=== PATIENT | female | born 1955 | race Caucasian/White ===

== ENCOUNTER 2016-12-04 07:46 | Outpatient (CLI) | payer OTHER | END 2016-12-04 07:47 | disposition home or self-care (01) | DX: Z00.00 Encounter for general adult medical examination without abnormal findings (principal) ==

== ENCOUNTER 2016-12-28 14:22 | Outpatient (CLI) | payer OTHER | END 2016-12-28 14:23 | disposition home or self-care (01) | DX: Z12.31 Encounter for screening mammogram for malignant neoplasm of breast (principal) ==

== ENCOUNTER 2016-12-28 14:24 | Outpatient (CLI) | payer OTHER | END 2016-12-28 14:25 | disposition home or self-care (01) | DX: Z13.820 Encounter for screening for osteoporosis (principal); M85.88 Other specified disorders of bone density and structure, other site ==

== ENCOUNTER 2018-04-03 16:06 | Emergency (ER) | payer OTHER ==
--- NOTE | 2018-04-03 19:18 | ED Physician Documentation ---
PD HPI OPHTHO - Stated complaint Stated Complaint: L EYE BLURRY - Chief complaint Chief Complaint: Heent - History obtained from History obtained from: Patient - History of Present Illness Timing - onset: How many days ago (2-3 days of having more floaters in left eye and slightly blurry vision at times. Having some peripheral scotomata left eye laterally intermittent. No eye pain. No eye injury. No headache.) Timing - duration: Days (2-3) Timing - details: Gradual onset, Intermittant Location: Left Quality / character: No: Aching Associated symptoms: Decreased vision (slightly blurry/floaters appearance.). No: Discharge, Matting, Photophobia, Headache Contributing factors: No: FB, Blunt trauma, Wears contacts Similar symptoms before: Has not had sx before (had brief loss of vision years ago, Dx as partial retinal artery occlusion; no particular treatment and had cardiac eval that was okay.) Recently seen: Not recently seen Review of Systems Eyes: reports: Decreased vision, Other (peripheral flashes intermittently for 2- 3 days). 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 : None HEENT: Other Psych: None Musculoskeletal: None Derm: Herpes zoster - Past Surgical History Past Surgical History: No /STORE GROUP MANAGER: Hysterectomy - Present Medications Home Medications: Ambulatory Orders Medication Instructions Recorded Confirmed Losartan [Cozaar] 50 mg PO BID 09/13/15 09/13/15 Metoprolol Tartrate 50 mg PO BID 09/13/15 09/13/15 Simvastatin 40 mg PO DAILY 09/13/15 09/13/15 - Allergies Allergies/Adverse Reactions: Allergies Allergy/AdvReac Type Severity Reaction Status Date / Time Sulfa (Sulfonamide Allergy Rash Verified 09/13/15 17:07 Antibiotics) - Social History Does the pt smoke?: No Smoking Status: Never smoker Does the pt drink ETOH?: Yes - Immunizations Immunizations are current?: Yes PD ED PE NORMAL - Vitals Vital signs reviewed: Yes - General General: Alert and oriented X 3, No acute distress, Well developed/nourished - HEENT HEENT: Ears normal, Pharynx benign - Neck Neck: Supple, no meningeal sign, No adenopathy, No bruit PD ED PE EXPANDED - Eyes Eyes: PERRL, EOMI, Anterior chambers clear, Other (there is some small floaters left posterior chamber c/w likely small hemorrhage. I could not see the hemorrhage per se. There appeared to be vascularity to the periphery in eye. Visual jimenez still intact. ) Results - Vitals Vitals: Oxygen O2 Source Room air PD MEDICAL DECISION MAKING - ED course Complexity details: considered differential (likely threatened retinal detachment or small bleed. I can see vascularity to the edge right now (in dark room, no dialting drops used). She is okay with seeing clinical implementation specialist in AM; she sees Dr. Santiago, Optometry, and I suggested Ophthalmology instead. No vigorous activity. ), d/w patient Departure - Departure Disposition: 01 Home, Self Care Clinical Impression: Ring scotoma, left eye, Retinal dot hemorrhage of left eye Condition: Stable Record reviewed to determine appropriate education?: Yes Instructions: ED Detachment Retinal Follow-Up: Srinivas Santiago, [facility] [Physician No Access] - Manuel Esquivel MD [Provider Admit Priv/Credential] - Comments: No vigorous activity tonight. Call Dr. Santiago tomorrow or alternatively Dr. Armstrong ophthalmology here in [place] for an exam tomorrow. There is concern for partial or threatened detachment of the retina with the symptoms you are having. It does not look detached at this time. Follow-up tomorrow with them return sooner if you are unable to see them or have worse symptoms. Discharge Date/Time: 04/03/18 20:15
[2018-04-03 20:13] VITALS: BP 177/98
== END 2018-04-03 20:15 | disposition home or self-care (01) ==
LOC: ED 16:06
DX: H53.452 Other localized visual field defect, left eye (principal); H35.62 Retinal hemorrhage, left eye; I10 Essential (primary) hypertension; I49.9 Cardiac arrhythmia, unspecified
CPT/HCPCS: 99283

== ENCOUNTER 2018-05-22 09:22 | Outpatient (CLI) | payer OTHER ==
[2018-05-22 09:52] LABS: BASOPHILS % (AUTO) 0.3 %; EOSINOPHILS # (AUTO) 0.1 10^3/uL (0.0-0.7); EOSINOPHILS % (AUTO) 1.1 %; HGB - HEMOGLOBIN 12.8 g/dL (12.0-16.0); LYMPHOCYTES # (AUTO) 1.7 10^3/uL (1.5-3.5); LYMPHOCYTES % (AUTO) 36.9 %; MEAN CORPUSCULAR HEMOGLOBIN 32.5 pg (27.0-31.0); MEAN CORPUSCULAR HGB CONC 34.1 g/dL (32.0-36.0); MEAN CORPUSCULAR VOLUME 95.3 fL (81.0-99.0); MEAN PLATELET VOLUME 7.4 fL (7.9-10.8); MONOCYTES # (AUTO) 0.4 10^3/uL (0.0-1.0); MONOCYTES % (AUTO) 7.7 %; NEUTROPHILS # (AUTO) 2.5 10^3/uL (1.5-6.6); PLT - PLATELET COUNT 194 10^3/uL (130-450); RED BLOOD COUNT 3.95 10^6/uL (4.20-5.40); RED CELL DISTRIBUTION WIDTH 12.8 % (12.0-15.0); WHITE BLOOD COUNT 4.6 x10^3/uL (4.8-10.8)
[2018-05-22 10:15] LABS: ALBUMIN 3.7 g/dL (3.2-5.5); ALBUMIN/GLOBULIN RATIO 1.2 (1.0-2.2); ALKALINE PHOSPHATASE 58 IU/L (42-121); ALT ALANINE AMINOTRANSFERASE 26 IU/L (10-60); AST ASPARTATE AMINOTRANSFERASE 25 IU/L (10-42); BUN - BLOOD UREA NITROGEN 14 mg/dL (6-20); CARBON DIOXIDE - CO2 26 mmol/L (21-32); CHLORIDE 107 mmol/L (101-111); CHOL/HDL RATIO 2.3 (<4.4); CHOLESTEROL 155 mg/dL; CREATININE 0.7 mg/dL (0.4-1.0); GFR - MDRD 85 (>89); GLUCOSE 99 mg/dL (70-100); HDL CHOLESTEROL 66 mg/dL; LDL CHOLESTEROL,CALCULATED 71 mg/dL; LDL/HDL RATIO 1.1 (<4.4); SODIUM 140 mmol/L (135-145); TOTAL PROTEIN 6.9 g/dL (6.7-8.2); VLDL CHOLESTEROL 18 mg/dL
[2018-05-22 10:25] LABS: HEMOGLOBIN A1C 0.47 g/dL; HEMOGLOBIN A1C % 5.2 % (4.6-6.2)
== END 2018-05-22 09:23 | disposition home or self-care (01) ==
LOC: LAB 09:22
PROVIDERS: ATTEND Physician Assistant Medical
DX: I10 Essential (primary) hypertension (principal); E78.5 Hyperlipidemia, unspecified; R73.9 Hyperglycemia, unspecified
CPT/HCPCS: 36415; 80053; 80061; 83036; 83721; 85025

== ENCOUNTER 2018-08-02 10:26 | Day surgery (SDC) | payer OTHER ==
[2018-08-02] MEDS ORDERED: LACTATED RINGERS 1,000 ML IV ONE (11:15)
--- NOTE | 2018-08-02 11:57 | HISTORY & PHYSICAL EXAMINATION ---
HPI - History of Present Illness HPI Comment/Other: Mrs. Vera Is here in consultation for colonoscopy. Her last colonoscopy was 2006 and was negative. She denies any changes in her bowel habits including constipation or diarrhea. She denies any blood per rectum. She denies any family history of colon cancer or colon polyps. She denies any unexplained weight loss or loss of appetite. Current Meds: VITAMIN D 1000 UNIT ORAL TABLET (CHOLECALCIFEROL) Take two tablets by mouth daily for vit D deficiency SIMVASTATIN 40 MG ORAL TABLET (SIMVASTATIN) Take one tablet by mouth daily COZAAR 50 MG ORAL TABLET (LOSARTAN POTASSIUM) take one tablet by mouth twice daily METOPROLOL TARTRATE 50 MG ORAL TABLET (METOPROLOL TARTRATE) Take one and one half tablet by mouth twice daily ASPIRIN EC 325 MG ORAL TABLET DELAYED RELEASE (ASPIRIN) Take one tablet by mouth daily Past Medical History: Reviewed history from 11/01/2009 and no changes required: Sulfa--rash HTN Irrregular Heartbeat Stroke, affected left eye Past Surgical History: Reviewed history from 05/29/2018 and no changes required: Hysterectomy-uterine fibroids-2005. Ovaries were left. wisdom teeth removal Family History Summary: Reviewed history Last on 10/01/2014 and no changes required:06/20/2018 Father (biol.) - Has a father who is alive and well - Entered On: 07/24/2014 Mother (biol.) - Has a Hx of Heart Disease - Entered On: 07/24/2014 Mother (biol.) - Has a mother who is alive and well - Entered On: 07/24/2014 Mother (biol.) - Has Family History of Other Medical Problems - Stents, pacemaker - Entered On: 06/20/2018 General Comments - FH: FH Hypertension--both parents, siblings, grandparents Mother: CAD, stents, pacemaker bradycardia Father: macular degeneration paternal grandfather with colon cancer in his 90's Sister: Hodgkins lymphoma Risk Factors: Smoked Tobacco Use: Never smoker Smokeless Tobacco Use: Never Passive smoke exposure: no Drug use: no HIV high-risk behavior: no Caffeine use: 2 drinks per day Alcohol use: yes Type: WINE Drinks per day: <1 Exercise: yes Times per week: 2 Type of Exercise: Aerobic Seatbelt use: 100 % Sun Exposure: occasionally Family History Risk Factors: Family History of SC in females < 65 years old: no Family History of SC in males < 55 years old: no Allergies: SULFA (Critical) HYDROCHLOROTHIAZIDE (Moderate) Physical Exam General: well developed, well nourished, in no acute distress Lungs: clear bilaterally to A & P Heart: regular rate and rhythm, S1, S2 without murmurs, rubs, gallops, or clicks Abdomen: bowel sounds positive; abdomen soft and non-tender without masses, organomegaly, or hernias noted Pulses: pulses normal in all 4 extremities Extremities: no clubbing, cyanosis, edema, or deformity noted with normal full range of motion of all joints Psych: alert and cooperative; normal mood and affect; normal attention span and concentration Impression & Recommendations: Problem # 1: Screening for malignant neoplasm, colon (ICD-V76.51) (ICD10- Z12.11) I have explained the colonoscopy procedure to the patient in detail and the risks involved, including but not limited to bleeding, perforated viscus and missing lesions. The patient understands the above and has agreed to proceed with the procedure. Colon prep instructions and prescription provided. Approximately 20 minutes spent in preparing the patient; all Questions and concerns were addressed. PMH/PSH - Past Medical History Cardiovascular: positive: Hypertension, High cholesterol, Arrhythmia Respiratory: positive: None Endocrine/Autoimmune: positive: None GI: positive: None KENO MANAGER: positive: None : positive: None HEENT: positive: Other Psych: positive: None Musculoskeletal: positive: Osteoarthritis Derm: positive: Herpes zoster MRSA Hx?: No - Past Surgical History /KENO MANAGER: positive: Hysterectomy Social & Family Hx - Social History Does the pt smoke?: No Smoking Status: Never smoker Does the pt drink ETOH?: Yes Meds/Allgy - Home Medications Home Medications: Ambulatory Orders Medication Instructions Recorded Confirmed Losartan [Cozaar] 50 mg PO BID 09/13/15 08/02/18 Metoprolol Tartrate 75 mg PO BID 09/13/15 08/02/18 Simvastatin 40 mg PO DAILY 09/13/15 08/02/18 Aspirin EC [Ecotrin] 325 tab PO DAILY 08/02/18 08/02/18 Calcium Carbonate [Calcium] 600 tab PO DAILY 08/02/18 08/02/18 Cholecalciferol (Vitamin D3) 1,000 tab PO DAILY 08/02/18 08/02/18 [Vitamin D3] Loratadine [Allergy] 10 tab PO DAILY 08/02/18 08/02/18 Multivitamin [Multiple Vitamins] 1 tab PO DAILY 08/02/18 08/02/18 - Allergies Allergies/Adverse Reactions: Allergies Allergy/AdvReac Type Severity Reaction Status Date / Time hydrochlorothiazide Allergy Rash Verified 08/02/18 10:54 Sulfa (Sulfonamide Allergy Rash Verified 09/13/15 17:07 Antibiotics) Exam - Vital Signs Vital Signs: Vital Signs x48h Temp Pulse Resp BP Pulse Ox 08/02/18 10:44 36.5 C 60 16 174/93 H 100
[2018-08-02] MEDS ORDERED: fentaNYL 250 MCG/5 ML VIAL IVP ONE (12:42)
[2018-08-02] MEDS ORDERED: MIDAZOLAM 2 MG/2 ML VIAL IVP ONE (12:42)
[2018-08-02 13:04] VITALS: BP 117/72
== END 2018-08-02 10:27 | disposition home or self-care (01) ==
LOC: SDS 10:26
PROVIDERS: ATTEND Surgery
PROC: 0DBK8ZZ Excision of Ascending Colon, Via Natural or Artificial Opening Endoscopic (ICD-10-PCS; 2018-08-02)
PROC: 3E0H8GC Introduction of Other Therapeutic Substance into Lower GI, Via Natural or Artificial Opening Endoscopic (ICD-10-PCS; 2018-08-02)
PROC: 0DBP8ZZ Excision of Rectum, Via Natural or Artificial Opening Endoscopic (ICD-10-PCS; principal; 2018-08-02 11:30)
DX: Z12.11 Encounter for screening for malignant neoplasm of colon (principal); D12.2 Benign neoplasm of ascending colon; K62.1 Rectal polyp; K64.8 Other hemorrhoids; I10 Essential (primary) hypertension; I49.9 Cardiac arrhythmia, unspecified; E78.00 Pure hypercholesterolemia, unspecified
CPT/HCPCS: 45380; 45381; 45385; J3010; J7120

== ENCOUNTER 2018-08-03 12:04 | Outpatient (CLI) | payer OTHER | END 2018-08-03 12:05 | disposition critical access hospital (66) | LOC: EMS 12:04 | PROVIDERS: ATTEND Surgery | DX: R10.30 Lower abdominal pain, unspecified (principal) | CPT/HCPCS: A0425; A0427 ==

== ENCOUNTER 2018-08-03 12:14 | Inpatient (IN) | payer OTHER ==
[2018-08-03] MEDS ORDERED: MORPHINE 2 MG/ML CARPUJECT IVP STA ×3 (12:21→15:32)
[2018-08-03] MEDS ORDERED: SODIUM CHLORIDE 0.9% 1,000 ML IV ONE (12:21)
[2018-08-03 12:38] LABS: BASOPHILS # (AUTO) 0.1 10^3/uL (0.0-0.1); BASOPHILS % (AUTO) 0.6 %; HGB - HEMOGLOBIN 13.6 g/dL (12.0-16.0); LYMPHOCYTES # (AUTO) 0.9 10^3/uL (1.5-3.5); MEAN CORPUSCULAR HEMOGLOBIN 32.3 pg (27.0-31.0); MEAN CORPUSCULAR VOLUME 94.8 fL (81.0-99.0); MEAN PLATELET VOLUME 7.5 fL (7.9-10.8); MONOCYTES # (AUTO) 0.2 10^3/uL (0.0-1.0); MONOCYTES % (AUTO) 1.9 %; NEUTROPHILS # (AUTO) 10.1 10^3/uL (1.5-6.6); NEUTROPHILS % (AUTO) 89.5 %; PLT - PLATELET COUNT 208 10^3/uL (130-450); RED BLOOD COUNT 4.21 10^6/uL (4.20-5.40); WHITE BLOOD COUNT 11.3 x10^3/uL (4.8-10.8)
[2018-08-03 12:44] LABS: CREATININE 0.8 mg/dL (0.4-1.0)
[2018-08-03] MEDS ORDERED: IOPAMIDOL-300 100 ML VIAL ONE (12:53)
[2018-08-03] MEDS ORDERED: IOPAMIDOL-300 100 ML VIAL IVP ONE (13:24)
--- NOTE | 2018-08-03 13:46 | ED Physician Documentation ---
History of Present Illness - Stated complaint Stated Complaint: ABD PX - Chief complaint Chief Complaint: Abd Pain - Additonal information Additional information: hx from pt 62 y/o f no blood thinner no immune compromise had colonoscopy with polyp removal Dr Morales yesterday today abrupt onset severe lower abd pain and near syncope no BM blood or otherwise no fever nausea no vomit Review of Systems Constitutional: denies: Fever, Chills Cardiac: denies: Chest pain / pressure Respiratory: denies: Dyspnea GI: reports: Abdominal Pain. 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 : None HEENT: Other Psych: None Musculoskeletal: Osteoarthritis Derm: Herpes zoster - Past Surgical History Past Surgical History: No /SHIPPING SERVICES SALES REPRESENTATIVE: Hysterectomy - Present Medications Home Medications: Ambulatory Orders Medication Instructions Recorded Confirmed Losartan [Cozaar] 50 mg PO BID 09/13/15 08/02/18 Metoprolol Tartrate 75 mg PO BID 09/13/15 08/02/18 Simvastatin 40 mg PO DAILY 09/13/15 08/02/18 Aspirin EC [Ecotrin] 325 tab PO DAILY 08/02/18 08/02/18 Calcium Carbonate [Calcium] 600 tab PO DAILY 08/02/18 08/02/18 Cholecalciferol (Vitamin D3) 1,000 unit PO DAILY 08/02/18 08/02/18 [Vitamin D3] Loratadine [Allergy] 10 tab PO DAILY 08/02/18 08/02/18 Multivitamin [Multiple Vitamins] 1 tab PO DAILY 08/02/18 08/02/18 - Allergies Allergies/Adverse Reactions: Allergies Allergy/AdvReac Type Severity Reaction Status Date / Time hydrochlorothiazide Allergy Rash Verified 08/03/18 12:19 Sulfa (Sulfonamide Allergy Rash Verified 09/13/15 17:07 Antibiotics) - Social History Does the pt smoke?: No Smoking Status: Never smoker Does the pt drink ETOH?: Yes Does the pt have substance abuse?: No - Immunizations Immunizations are current?: Yes PD ED PE NORMAL - Vitals Vital signs reviewed: Yes - General General: Other (pale) - Neck Neck: Supple, no meningeal sign - Cardiac Cardiac: RRR - Respiratory Respiratory: No respiratory distress, Clear bilaterally - Abdomen Abdomen: Other (marked TTP lower abd with vol guarding but not rigid) - Derm Derm: Other (pale) - Neuro Neuro: Alert and oriented X 3 Results - Vitals Vitals: Vital Signs - 24 hr 08/03/18 08/03/18 12:15 12:36 Temperature 37.3 C Heart Rate 83 79 Respiratory 20 16 Rate Blood Pressure 129/67 116/66 O2 Saturation 99 98 Oxygen O2 Source Room air - Labs Labs: Laboratory Tests 08/03/18 08/03/18 08/03/18 12:28 12:28 12:28 WBC 11.3 H RBC 4.21 Hgb 13.6 Hct 39.9 MCV 94.8 MCH 32.3 H MCHC 34.0 RDW 13.0 Plt Count 208 MPV 7.5 L Neut # (Auto) 10.1 H Lymph # (Auto) 0.9 L [place] # (Auto) 0.2 Eos # (Auto) 0.0 Baso # (Auto) 0.1 Absolute Nucleated RBC 0.01 Nucleated RBC % 0.0 Sodium 137 Potassium 3.6 Chloride 106 Carbon Dioxide 27 Anion Gap 4.0 L BUN 14 Creatinine 0.8 Estimated GFR (MDRD) 72 L Glucose 89 Calcium 9.0 Urine Color Urine Clarity Urine pH Ur Specific Angle Inlet Urine Protein Urine Glucose (UA) Urine Ketones Urine Occult Blood Urine Nitrite Urine Bilirubin Urine Urobilinogen Ur Leukocyte Esterase Ur Microscopic Review Urine Culture Comments Blood Type A NEGATIVE Antibody Screen NEGATIVE 08/03/18 13:54 WBC RBC Hgb Hct MCV MCH MCHC RDW Plt Count MPV Neut # (Auto) Lymph # (Auto) [place] # (Auto) Eos # (Auto) Baso # (Auto) Absolute Nucleated RBC Nucleated RBC % Sodium Potassium Chloride Carbon Dioxide Anion Gap BUN Creatinine Estimated GFR (MDRD) Glucose Calcium Urine Color YELLOW Urine Clarity CLEAR Urine pH 6.0 Ur Specific Angle Inlet <=1.005 Urine Protein NEGATIVE Urine Glucose (UA) NEGATIVE Urine Ketones NEGATIVE Urine Occult Blood NEGATIVE Urine Nitrite NEGATIVE Urine Bilirubin NEGATIVE Urine Urobilinogen 0.2 (NORMAL) Ur Leukocyte Esterase NEGATIVE Ur Microscopic Review NOT INDICATED Urine Culture Comments NOT INDICATED Blood Type Antibody Screen - Rads (name of study) CT AP with IV con Radiology: See rad report (per rad report small FF, mucosal enhancement, wall thickeing, no free air or abscess) PD MEDICAL DECISION MAKING - ED course ED course: pt seen by Dr Carmona who examined her and reviewed CT - plan is to admit for observation and zosyn - Sepsis Event Vital Signs: Vital Signs - 24 hr 08/03/18 08/03/18 12:15 12:36 Temperature 37.3 C Heart Rate 83 79 Respiratory 20 16 Rate Blood Pressure 129/67 116/66 O2 Saturation 99 98 Oxygen O2 Source Room air Departure - Departure Disposition: ED Place in Observation Clinical Impression: Post-operative pain Condition: Fair Discharge Date/Time: 08/03/18 16:20
--- NOTE | 2018-08-03 13:58 | CT Report ---
Reason: severe abrupt onset abd pain after colonoscopy Procedure Date: 08/03/2018 Accession Number: [id number] / [id number] Procedure: CT - Abdomen/Pelvis W/ CPT Code: FULL RESULT: EXAM: CT ABDOMEN AND PELVIS EXAM DATE: 08/03/2018 01:26 PM. CLINICAL HISTORY: Severe abrupt onset abd pain after colonoscopy. COMPARISONS: 09/13/2015. TECHNIQUE: Routine helical CT imaging was performed through the abdomen and pelvis. IV contrast: 100 mL Isovue-370. Enteric contrast: No. Reconstructions: Coronal and sagittal. In accordance with CT protocol optimization, one or more of the following dose reduction techniques were utilized for this exam: automated exposure control, adjustment of mA and/or KV based on patient size, or use of iterative reconstructive technique. FINDINGS: Lung Bases: Unremarkable. Liver: Normal. Gallbladder/Bile Ducts: Unremarkable. Spleen: Normal. Pancreas: Normal. Adrenal Glands: Normal. Kidneys: No hydronephrosis. Partially duplicated left renal collecting system. Peritoneal Cavity/Bowel: Small amount of ascites. No abscess. There is mild hazy attenuation in the lower abdominal mesentery. Increased mucosal enhancement and possible mild wall thickening of distal ileum. No bowel obstruction. No free air or adenopathy. The appendix is within normal limits. Pelvic Organs: Bladder, uterus and adnexa are unremarkable. Vasculature: Without atherosclerosis. Bones: No significant abnormality. Other: None. IMPRESSION: Small amount of ascites. Increased mucosal enhancement and possible mild wall thickening of distal ileum could represent mild enteritis. No abscess or free air. RADIA
[2018-08-03] MEDS ORDERED: HYDROmorphone 0.5 MG/0.5 ML SYRINGE IVP PRN (15:15)
[2018-08-03] MEDS ORDERED: KETOROLAC 15 MG/ML VIAL IVP PRN (15:15)
[2018-08-03] MEDS ORDERED: PIPERACILLIN/TAZOBACTAM 3.375 GM in SODIUM CHLORIDE 0.9% MINIBAG 100 ML IV STA (15:30)
--- NOTE | 2018-08-03 15:41 | CONSULTATION NOTE ---
Referring Provider Name of Referring Provider:: Dr. Cruz Consult Date: 08/03/18 Chief Complaint - Chief Complaint Chief Complaint: abd pain History of Present Illness - Admitted From Admitted From:: ER - History Obtained From Records Reviewed: yes History obtained from: pt, records Exam Limitations: none - History of Present Illness HPI Comment/Other: 62 yo female who underwent colonoscopy with polypectomy x2 approx noon yesterday by Dr. Morales. A 5-9 mm sessile polyp was removed from the ascending colon using saline lift and snare cautery technique, and the rectal polyp was removed with a cold biopsy forceps technique. Entering the cecum was described as moderately difficult. She did well following the procedure and had no difficulties until 10 am this morning when she noted the sudden onset of severe lower abdominal pain with nausea but no vomiting, chills but no fever, no passage of stool per rectum, passage of a small amount of flatus, no previous similar episodes of pain like this. She is s/p hysterectomy with retention of her ovaries. She ate a normal breakfast this morning. She presented to the ER today for further evaluation. Her pain is currently improved, having received narcotic analgesia. In the ER the CT showed a small amount of free fluid, no free air, no loculated collections of fluid/air, possible thickening of the te rminal ileum and mesenteric edema; nl appendix; no heel turner pathology, no evidence of bowel perforation. 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 - Substance History Use: Uses substance without health or social issues: Alcohol (2 glasses of wine on weekend days) Abuse: Recurrent use of substance despite neg consequences: NONE Dependence: Experiences withdrawal or developed tolerances: NONE - POLST POLST Status: Full Code Meds/Allgy - Home Medications Home Medications: Ambulatory Orders Medication Instructions Recorded Confirmed Losartan [Cozaar] 50 mg PO BID 09/13/15 08/02/18 RX: Metoprolol Tartrate 75 mg PO BID 09/13/15 08/02/18 RX: Simvastatin 40 mg PO DAILY 09/13/15 08/02/18 Calcium Carbonate [Calcium] 600 tab PO DAILY 08/02/18 08/02/18 Cholecalciferol (Vitamin D3) 1,000 unit PO DAILY 08/02/18 08/02/18 [Vitamin D3] Multivitamin [Multiple Vitamins] 1 tab PO DAILY 08/02/18 08/02/18 RX: Aspirin EC [Ecotrin] 325 tab PO DAILY 08/02/18 08/02/18 RX: Loratadine [Allergy] 10 tab PO DAILY 08/02/18 08/02/18 - Allergies Allergies/Adverse Reactions: Allergies Allergy/AdvReac Type Severity Reaction Status Date / Time hydrochlorothiazide Allergy Rash Verified 08/03/18 12:19 Sulfa (Sulfonamide Allergy Rash Verified 09/13/15 17:07 Antibiotics) Review of Systems - Constitutional Constitutional: reports: Chills, Poor appetite - Cardiovascular Cariovascular: reports: Irregular heart rate - Respiratory Respiratory: denies: Cough, Sputum production - Gastrointestinal Gastrointestinal: reports: Abdominal pain, Nausea, Poor appetite. denies: Rectal bleeding, Black stools, Bloody stools, Vomiting, Bile emesis, Bartolo blood emesis, Coffee grounds emesis - Hematologic/Lymphatic Hematologic/Lymphatic: reports: Blood clots (retinal occlusion). denies: Bleeding tendencies - All Other Systems All Other Systems: reports: Reviewed and negative Exam - Vital Signs Reviewed Vital Signs: Yes Vital Signs: Vital Signs x48h Temp Pulse Resp BP Pulse Ox 08/03/18 12:36 79 16 116/66 98 08/03/18 12:15 37.3 C 83 20 129/67 99 - Physical Exam General Appearance: positive: Alert, Moderate distress Eyes Bilateral: positive: Normal inspection ENT: positive: ENT inspection nml, No signs of dehydration Neck: positive: No JVD. negative: Lymphadenopathy (R), Lymphadenopathy (L) Respiratory: positive: Chest non-tender, No respiratory distress, Breath sounds nml. negative: Wheezes, Rales, Rhonchi Cardiovascular: positive: Regular rate & rhythm, No murmur, No gallop Abdomen: positive: Nml bowel sounds, Tenderness (bilateral lower abd tenderness with guarding and rebound tenderness; no generalized peritoneal signs), Guarding, Rebound. negative: Hepatomegaly, Splenomegaly, Mass Skin: positive: Color nml, No rash, Warm, Diaphoresis Extremities: positive: Nml appearance, No pedal edema. negative: Calf ten derness Neurologic/Psychiatric: positive: Oriented x3 Conclusion/Plan - Diagnosis Diagnosis: Sudden onset of abd pain almost 24 hours following colonoscopy and polypectomy; ddx includes early delayed microperforation at polypectomy site in the ascending colon, other colon injury from colonoscopy looping, doubt appendicitis, doubt diverticulitis, viral syndrome, enteritis, heel turner pathology. No evidence of generalized peritonitis or sepsis at present. - Plan Plan: Admit for observation, bowel rest, IV fluids, IV antibiotics, serial abd exams and xrays. If sx fail to resolve over next 12-24 hours, then laparoscopy/laparotomy will be indicated for definitive diagnosis and therapy. - Lab Results Lab results reviewed: Yes Fish Bones: 08/03/18 12:28 08/03/18 12:28 - Diagnostic Imaging Results Diagnostic Imaging Results: positive: Final report reviewed, Read independently Diagnostic Imaging Results Comments: See HPI.
[2018-08-03 17:03] LABS: BILIRUBIN,URINE NEGATIVE (NEGATIVE); CLARITY,URINE CLEAR (CLEAR); GLUCOSE, URINE (UA) NEGATIVE (NEGATIVE); KETONES,URINE (UA) NEGATIVE (NEGATIVE); LEUKOCYTE ESTERASE, URINE NEGATIVE (NEGATIVE); NITRITE,URINE NEGATIVE (NEGATIVE); OCCULT BLOOD,URINE NEGATIVE (NEGATIVE); PROTEIN,URINE NEGATIVE (NEGATIVE); UROBILINOGEN,URINE 0.2 (NORMAL) E.U./dL (NORMAL)
[2018-08-03] MEDS: SODIUM CHLORIDE FLUSH 0.9% 10 ML SYRINGE IVP SCH (17:08)
[2018-08-03] MEDS: LACTATED RINGERS 1,000 ML IV SCH (17:08)
[2018-08-03] MEDS: ACETAMINOPHEN 1,000 MG/100 ML 100 ML IV PRN (17:15)
--- NOTE | 2018-08-03 19:04 | XRAY Report ---
Reason: abd pain s/p colonoscopy Procedure Date: 08/03/2018 Accession Number: [id number] / [id number] Procedure: XR - Abdomen 3 View X-Ray CPT Code: 90395 FULL RESULT: EXAM: ABDOMINAL SERIES AND PA CHEST EXAM DATE: 08/03/2018 06:44 PM. CLINICAL HISTORY: Abd pain s/p colonoscopy. COMPARISON: CT scan of the same date. TECHNIQUE: 2 views abdomen and 1 view chest. FINDINGS: CHEST: Lungs/Pleura: No focal opacities. No effusion or pneumothorax. Mediastinum: Within exam limitations, cardiomediastinal contour is normal. ABDOMEN: Bowel Gas Pattern: Within normal limits. No dilated loops or abnormal fluid levels. Free Air: None. Other: Excreted contrast seen in the urinary bladder. IMPRESSION: Unremarkable exam. Excreted contrast in urinary bladder. RADIA
[2018-08-03] MEDS: METOPROLOL TARTRATE 25 MG TABLET PO SCH (21:05)
[2018-08-03] MEDS: LOSARTAN 50 MG TABLET PO SCH (21:11)
[2018-08-03] MEDS: PIPERACILLIN/TAZOBACTAM 3.375 GM in SODIUM CHLORIDE 0.9% MINIBAG 100 ML IV SCH (21:12)
[2018-08-04] MEDS: SODIUM CHLORIDE FLUSH 0.9% 10 ML SYRINGE IVP SCH ×4 (00:45→15:41)
[2018-08-04] MEDS: ACETAMINOPHEN 1,000 MG/100 ML 100 ML IV PRN ×2 (00:57→16:21)
[2018-08-04] MEDS: LACTATED RINGERS 1,000 ML IV SCH ×3 (02:35→17:56)
[2018-08-04] MEDS: PIPERACILLIN/TAZOBACTAM 3.375 GM in SODIUM CHLORIDE 0.9% MINIBAG 100 ML IV SCH ×4 (03:18→21:28)
[2018-08-04 06:43] LABS: BASOPHILS % (AUTO) 0.1 %; HGB - HEMOGLOBIN 12.1 g/dL (12.0-16.0); LYMPHOCYTES # (AUTO) 1.1 10^3/uL (1.5-3.5); LYMPHOCYTES % (AUTO) 8.7 %; MEAN CORPUSCULAR HEMOGLOBIN 32.3 pg (27.0-31.0); MEAN CORPUSCULAR HGB CONC 33.6 g/dL (32.0-36.0); MEAN CORPUSCULAR VOLUME 96.1 fL (81.0-99.0); MEAN PLATELET VOLUME 7.8 fL (7.9-10.8); MONOCYTES # (AUTO) 0.2 10^3/uL (0.0-1.0); NEUTROPHILS # (AUTO) 11.2 10^3/uL (1.5-6.6); NEUTROPHILS % (AUTO) 89.2 %; PLT - PLATELET COUNT 173 10^3/uL (130-450); RED BLOOD COUNT 3.74 10^6/uL (4.20-5.40); RED CELL DISTRIBUTION WIDTH 12.9 % (12.0-15.0); WHITE BLOOD COUNT 12.6 x10^3/uL (4.8-10.8)
[2018-08-04 06:57] LABS: ALBUMIN 3.1 g/dL (3.2-5.5); ALBUMIN/GLOBULIN RATIO 1.2 (1.0-2.2); BILIRUBIN,TOTAL 1.7 mg/dL (0.2-1.0); CALCIUM 8.5 mg/dL (8.5-10.3); CREATININE 0.8 mg/dL (0.4-1.0); TOTAL PROTEIN 5.7 g/dL (6.7-8.2)
--- NOTE | 2018-08-04 08:25 | PROVIDER PROGRESS NOTE ---
Assessment/Plan - Problem List (1) Status post colonoscopy Assessment/Plan: Pt clearly has deteriorated and has an acute abdomen at this time, suggesting perforation and peritonitis. Plan: to OR for diagnostic laparoscopy/possible laparotomy and definitive treatment, including possible bowel resection and ostomy. PAR conf with pt with above discussed in detail and consent obtained. The surgery will be performed later this morning as soon as it can be arranged. Discussed case with Dr. Morales, who is out of town, and she agrees with above and suspects problem is arising from ascending colon polypectomy site. - Current Meds Current Meds: Current Medications Generic Name Dose Route Start Last Admin Trade Name Freq PRN Reason Stop Dose Admin Lactated Ringer's 1,000 mls @ 125 mls/hr 08/03/18 16:00 08/04/18 02:35 Lr IV 125 mls/hr .Q8H ELIEL Administration Acetaminophen 100 mls @ 400 mls/hr 08/03/18 15:15 08/04/18 01:15 Ofirmev IV Infused Q6HR PRN Infusion PAIN Piperacillin Sod/Tazobactam 100 mls @ 200 mls/hr 08/03/18 22:00 08/04/18 03:50 Sod 3.375 gm/ Sodium Chloride IV Infused Q6H ELIEL Infusion Ketorolac Tromethamine 15 mg 08/03/18 15:15 08/03/18 22:49 Toradol Inj (15mg) IVP 08/08/18 15:14 15 mg Q6HR PRN Administration PAIN Losartan Potassium 50 mg 08/03/18 21:00 08/03/18 21:11 Cozaar PO Not Given BID ELIEL Metoprolol Tartrate 75 mg 08/03/18 21:00 08/03/18 21:05 Lopressor PO Not Given BID ELIEL Sodium Chloride 10 ml 08/03/18 17:00 08/04/18 00:45 Normal Saline Flush 0.9% IVP Not Given 0100,0900,1700 ELIEL - Lab Result Lab results reviewed: Yes Fish Bone Diagrams: 08/04/18 06:15 08/04/18 06:15 - EKG Results EKG Interpreted Independently: No EKG Comparison: Old EKG unavailable EKG Findings: NSR; no acute findings - Diagnostic Imaging Results Diagnostic Imaging Results: Final report reviewed, Read independently Diagnostic Imaging Results Comments: 3 view abd series from last night: nl; no free air or abnormal bowel gas pattern. - Additional Planning Condition/Complexity: Guarded My Orders: My Active Orders 08/03/18 15:15 Activity Orders [RC] QSHIFT IO [RC] IOSHIFT IV Line/Site Care [RC] QSHIFT Oxygen Therapy [RC] .PRN Preop Surgical Checklist [RC] Routine Telemetry- [RC] Q4HR Vital Signs [RC] Q4HR Acetaminophen 1,000 mg/100 ml [Ofirmev] 100 ml IV Q6HR HYDROmorphone INJ SYRINGE [Dilaudid Inj Syringe] 0.5 mg IVP Q2H PRN Ketorolac Inj (15Mg) [Toradol Inj (15Mg)] 15 mg IVP Q6HR PRN Sodium Chloride Flush 0.9% [Normal Saline Flush 0.9%] 10 ml IVP PRN PRN Code Status [OTHERS] Routine Condition of Patient [OTHERS] Routine DVT Prophylaxis [OTHERS] Routine 08/03/18 15:24 SCDs [RC] QSHIFT 08/03/18 15:34 NPO except Meds [DIET] 08/03/18 16:00 Lactated Ringers [Lr] 1,000 ml IV 125 mls/hr 08/03/18 17:00 Sodium Chloride Flush 0.9% [Normal Saline Flush 0.9%] 10 ml IVP 0100,0900,1700 08/03/18 21:00 Losartan [Cozaar] 50 mg PO BID Metoprolol Tartrate [Lopressor] 75 mg PO BID 08/03/18 22:00 Piperacillin/Tazobactam [Zosyn] 3.375 gm Sodium Chloride 0.9% Minibag [Normal Saline 0.9% Minibag] 100 ml IV Q6H 08/04/18 07:00 Abdomen 3 View X-Ray [XR] Routine 08/04/18 09:00 Enoxaparin [Lovenox] 40 mg SUBQ DAILY Plan Discussed with:: Patient, Other (Dr. Morales) Time Spent: 31-60 minutes Subjective - Subjective Patient Reports: Abdominal Pain (abd pain improved following admission yesterday evening, but worsened overnight, now generalized, exacerbated with movement. No bm since admission; voiding well.), Nausea Objective Vital Signs: Vital Signs - 24 hr 08/03/18 08/03/18 08/03/18 12:15 12:36 15:30 Temperature 37.3 C Heart Rate 83 79 84 Heart Rate [ Brachial] Heart Rate [ Monitoring electrodes] Respiratory 20 16 15 Rate Blood Pressure 129/67 116/66 122/64 Blood Pressure [Right Brachial artery] O2 Saturation 99 98 95 08/03/18 08/03/18 08/03/18 15:40 16:54 17:08 Temperature 38.1 C H Heart Rate 87 Heart Rate [ Brachial] Heart Rate [ 86 Monitoring electrodes] Respiratory 15 14 Rate Blood Pressure 122/64 Blood Pressure 116/58 L [Right Brachial artery] O2 Saturation 98 91 L 93 08/03/18 08/03/18 08/04/18 18:23 20:57 00:59 Temperature 37.3 C 37.2 C 37.4 C Heart Rate Heart Rate [ 85 98 Brachial] Heart Rate [ Monitoring electrodes] Respiratory 14 16 Rate Blood Pressure Blood Pressure 112/62 120/65 [Right Brachial artery] O2 Saturation 96 93 08/04/18 08/04/18 05:16 07:42 Temperature 37.2 C 37.3 C Heart Rate Heart Rate [ 89 96 Brachial] Heart Rate [ Monitoring electrodes] Respiratory 16 18 Rate Blood Pressure Blood Pressure 116/63 130/71 [Right Brachial artery] O2 Saturation 93 95 Oxygen O2 Source Room air I&O (Last 24 Hrs): Intake and Output Totals x24h 08/02/18 08/03/18 08/04/18 23:59 23:59 23:59 Intake Total 1808.333 591.667 Output Total 475 300 Balance 1333.333 291.667 General: Alert, Oriented x3, Cooperative, Moderate distress HEENT: Other (mucous membranes dry) Neck: Supple, No JVD Neuro: Alert Cardiovascular: Regular rate, Normal S1, Normal S2 Respiratory: Chest non-tender, No respiratory distress, Breath sounds nml Abdomen: Other (hypoactive bowel sounds; diffuse abd tenderness with guarding and rebound) Extremities: No edema, No tenderness/swelling Skin: No rashes - Results Results: Laboratory Results WBC 12.6 x10^3/uL (4.8-10.8) H 08/04/18 06:15 RBC 3.74 10^6/uL (4.20-5.40) L 08/04/18 06:15 Hgb 12.1 g/dL (12.0-16.0) 08/04/18 06:15 Hct 36.0 % (37.0-47.0) L 08/04/18 06:15 MCV 96.1 fL (81.0-99.0) 08/04/18 06:15 MCH 32.3 pg (27.0-31.0) H 08/04/18 06:15 MCHC 33.6 g/dL (32.0-36.0) 08/04/18 06:15 RDW 12.9 % (12.0-15.0) 08/04/18 06:15 Plt Count 173 10^3/uL (130-450) 08/04/18 06:15 MPV 7.8 fL (7.9-10.8) L 08/04/18 06:15 Neut # (Auto) 11.2 10^3/uL (1.5-6.6) H 08/04/18 06:15 Lymph # (Auto) 1.1 10^3/uL (1.5-3.5) L 08/04/18 06:15 [place] # (Auto) 0.2 10^3/uL (0.0-1.0) 08/04/18 06:15 Eos # (Auto) 0.0 10^3/uL (0.0-0.7) 08/04/18 06:15 Baso # (Auto) 0.0 10^3/uL (0.0-0.1) 08/04/18 06:15 Absolute Nucleated RBC 0.00 x10^3/uL 08/04/18 06:15 Nucleated RBC % 0.0 /100WBC 08/04/18 06:15 Sodium 139 mmol/L (135-145) 08/04/18 06:15 Potassium 3.8 mmol/L (3.5-5.0) 08/04/18 06:15 Chloride 107 mmol/L (101-111) 08/04/18 06:15 Carbon Dioxide 24 mmol/L (21-32) 08/04/18 06:15 Anion Gap 8.0 (6-13) 08/04/18 06:15 BUN 11 mg/dL (6-20) 08/04/18 06:15 Creatinine 0.8 mg/dL (0.4-1.0) 08/04/18 06:15 Estimated GFR (MDRD) 72 (>89) L 08/04/18 06:15 Glucose 91 mg/dL (70-100) 08/04/18 06:15 Calcium 8.5 mg/dL (8.5-10.3) 08/04/18 06:15 Total Bilirubin 1.7 mg/dL (0.2-1.0) H 08/04/18 06:15 AST 38 IU/L (10-42) 08/04/18 06:15 ALT 35 IU/L (10-60) 08/04/18 06:15 Alkaline Phosphatase 47 IU/L (42-121) 08/04/18 06:15 Total Protein 5.7 g/dL (6.7-8.2) L 08/04/18 06:15 Albumin 3.1 g/dL (3.2-5.5) L 08/04/18 06:15 Globulin 2.6 g/dL (2.1-4.2) 08/04/18 06:15 Albumin/Globulin Ratio 1.2 (1.0-2.2) 08/04/18 06:15 Urine Color YELLOW 08/03/18 13:54 Urine Clarity CLEAR (CLEAR) 08/03/18 13:54 Urine pH 6.0 PH (5.0-7.5) 08/03/18 13:54 Ur Specific [place] <=1.005 (1.002-1.030) 08/03/18 13:54 Urine Protein NEGATIVE mg/dL (NEGATIVE) 08/03/18 13:54 Urine Glucose (UA) NEGATIVE mg/dL (NEGATIVE) 08/03/18 13:54 Urine Ketones NEGATIVE mg/dL (NEGATIVE) 08/03/18 13:54 Urine Occult Blood NEGATIVE (NEGATIVE) 08/03/18 13:54 Urine Nitrite NEGATIVE (NEGATIVE) 08/03/18 13:54 Urine Bilirubin NEGATIVE (NEGATIVE) 08/03/18 13:54 Urine Urobilinogen 0.2 (NORMAL) E.U./dL (NORMAL) 08/03/18 13:54 Ur Leukocyte Esterase NEGATIVE (NEGATIVE) 08/03/18 13:54 Ur Microscopic Review NOT INDICATED 08/03/18 13:54 Urine Culture Comments NOT INDICATED 08/03/18 13:54 Blood Type A NEGATIVE 08/03/18 12:28 Antibody Screen NEGATIVE 08/03/18 12:28 ABX Reporting Has patient been on IV antibiotics over the past 48 hours?: No
[2018-08-04] MEDS ORDERED: ENOXAPARIN 40 MG/0.4 ML SYRINGE SUBQ SCH (09:00)
--- NOTE | 2018-08-04 09:10 | ANESTHESIA ---
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 No evidence of generalized peritonitis or sepsis at present. - Procedure Diagnostic laparoscopy Vital Signs: Temp Pulse Resp BP Pulse Ox 37.3 C 96 18 130/71 95 08/04/18 07:42 08/04/18 07:42 08/04/18 07:42 08/04/18 07:42 08/04/18 07:42 Height 5 ft 4 in Weight (kg) 64.5 kg Body Mass Index 24.4 - NPO >8 hours - Is Patient ?: No - Lab Results Current Lab Results: Laboratory Tests 08/04/18 06:15: Sodium 139, Potassium 3.8, Chloride 107, Carbon Dioxide 24, Anion Gap 8.0, BUN 11, Creatinine 0.8, Estimated GFR (MDRD) 72 L, Glucose 91, Calcium 8.5, Total Bilirubin 1.7 H, AST 38, ALT 35, Alkaline Phosphatase 47, Total Protein 5.7 L, Albumin 3.1 L, Globulin 2.6, Albumin/Globulin Ratio 1.2 08/04/18 06:15: WBC 12.6 H, RBC 3.74 L, Hgb 12.1, Hct 36.0 L, MCV 96.1, MCH 32.3 H, MCHC 33.6, RDW 12.9, Plt Count 173, MPV 7.8 L, Neut # (Auto) 11.2 H, Lymph # (Auto) 1.1 L, [place] # (Auto) 0.2, Eos # (Auto) 0.0, Baso # (Auto) 0.0, Absolute Nucleated RBC 0.00, Nucleated RBC % 0.0 08/03/18 12:28: Blood Type A NEGATIVE, Antibody Screen NEGATIVE 08/03/18 12:28: Sodium 137, Potassium 3.6, Chloride 106, Carbon Dioxide 27, Anion Gap 4.0 L, BUN 14, Creatinine 0.8, Estimated GFR (MDRD) 72 L, Glucose 89, Calcium 9.0 08/03/18 12:28: WBC 11.3 H, RBC 4.21, Hgb 13.6, Hct 39.9, MCV 94.8, MCH 32.3 H, MCHC 34.0, RDW 13.0, Plt Count 208, MPV 7.5 L, Neut # (Auto) 10.1 H, Lymph # (Auto) 0.9 L, [place] # (Auto) 0.2, Eos # (Auto) 0.0, Baso # (Auto) 0.1, Absolute Nucleated RBC 0.01, Nucleated RBC % 0.0 Lab results reviewed: Yes Fish Bones: 08/04/18 06:15 08/04/18 06:15 Home Medications and Allergies Home Medications: Ambulatory Orders Medication Instructions Recorded Confirmed Losartan [Cozaar] 50 mg PO BID 09/13/15 08/02/18 Metoprolol Tartrate 75 mg PO BID 09/13/15 08/02/18 Simvastatin 40 mg PO DAILY 09/13/15 08/02/18 Aspirin EC [Ecotrin] 325 tab PO DAILY 08/02/18 08/02/18 Calcium Carbonate [Calcium] 600 tab PO DAILY 08/02/18 08/02/18 Cholecalciferol (Vitamin D3) 1,000 unit PO DAILY 08/02/18 08/02/18 [Vitamin D3] Loratadine [Allergy] 10 tab PO DAILY 08/02/18 08/02/18 Multivitamin [Multiple Vitamins] 1 tab PO DAILY 08/02/18 08/02/18 Active Medications Enoxaparin Sodium (Lovenox) 40 mg SUBQ DAILY [facility] Hydromorphone HCl (Dilaudid Inj Syringe) 0.5 mg IVP Q2H PRN PRN Reason: PAIN Lactated Ringer's (Lr) 1,000 mls @ 125 mls/hr IV .Q8H [facility] Last Admin: 08/04/18 02:35 Dose: 125 mls/hr Acetaminophen (Ofirmev) 100 mls @ 400 mls/hr IV Q6HR PRN PRN Reason: PAIN Last Infusion: 08/04/18 01:15 Dose: Infused Piperacillin Sod/Tazobactam (Sod 3.375 gm/ Sodium Chloride) 100 mls @ 200 mls/hr IV Q6H [facility] Last Infusion: 08/04/18 03:50 Dose: Infused Ketorolac Tromethamine (Toradol Inj (15mg)) 15 mg IVP Q6HR PRN PRN Reason: PAIN Stop: 08/08/18 15:14 Last Admin: 08/03/18 22:49 Dose: 15 mg Losartan Potassium (Cozaar) 50 mg PO BID [facility] Last Admin: 08/03/18 21:11 Dose: Not Given Metoprolol Tartrate (Lopressor) 75 mg PO BID [facility] Last Admin: 08/03/18 21:05 Dose: Not Given Sodium Chloride (Normal Saline Flush 0.9%) 10 ml IVP 0100,0900,1700 [facility] Last Admin: 08/04/18 00:45 Dose: Not Given Sodium Chloride (Normal Saline Flush 0.9%) 10 ml IVP PRN PRN PRN Reason: NEEDED PER PROVIDER ORDERS Losartan [Cozaar] 50 mg PO BID 09/13/15 Metoprolol Tartrate 75 mg PO BID 09/13/15 Simvastatin 40 mg PO DAILY 09/13/15 Aspirin EC [Ecotrin] 325 tab PO DAILY 08/02/18 Calcium Carbonate [Calcium] 600 tab PO DAILY 08/02/18 Cholecalciferol (Vitamin D3) [Vitamin D3] 1,000 unit PO DAILY 08/02/18 Loratadine [Allergy] 10 tab PO DAILY 08/02/18 Multivitamin [Multiple Vitamins] 1 tab PO DAILY 08/02/18 Allergies/Adverse Reactions: Allergies Allergy/AdvReac Type Severity Reaction Status Date / Time hydrochlorothiazide Allergy Rash Verified 08/03/18 12:19 Sulfa (Sulfonamide Allergy Rash Verified 09/13/15 17:07 Antibiotics) Anes History & Medical History - Anesthetic History Anesthesia Complications: reports: No previous complications Family history of Anesthesia Complications: Denies Family history of Malignant Hyperthermia: Denies - Medical History Cardiovascular: reports: Hypertension, High cholesterol, Arrhythmia Pulmonary: reports: None Gastrointestinal: reports: None Urinary: reports: None Neuro: reports: None Musculoskeletal: reports: Osteoarthritis Endocrine/Autoimmune: reports: None Blood Disorders: reports: None Skin: reports: Herpes zoster Smoking Status: Never smoker Psychosocial: reports: No issues indicated - Surgical History Gynecologic: Hysterectomy Exam Dental: WNL Mouth Opening: Greater than 4 Fingerbreadths Neck Mobility: Normal Mallampati classification: II Thyromental Distance: greater than 6 cm Respiratory: Lungs clear Cardiovascular: Regular rate Neurological: Normal speech Mental/Cognitive Status: Alert/Oriented X3 Cognitive Status: Within normal limits Plan Anesthesia Type: General Consent for Procedure(s) Verified and Reviewed: Yes Code Status: Attempt Resuscitation ASA classification: 2-Mild systemic disease Is this case an emergency?: Yes
[2018-08-04] MEDS ORDERED: BUPIVACAINE 0.25%-EPI 1:200000 PF 30 ML VIAL ONE (09:16)
[2018-08-04] MEDS ORDERED: BUPIVACAINE 0.25%-EPI 1:200000 PF 30 ML VIAL SUBQ ONE ×2 (10:33)
[2018-08-04] MEDS ORDERED: LIDOCAINE-MPF 2% 5 ML VIAL IM ONE (10:38)
[2018-08-04] MEDS ORDERED: ESMOLOL 100 MG/10 ML VIAL IVP ONE (10:38)
[2018-08-04] MEDS ORDERED: ONDANSETRON 4 MG/2 ML VIAL IVP ONE (10:38)
[2018-08-04] MEDS ORDERED: fentaNYL 250 MCG/5 ML VIAL IVP ONE (10:38)
[2018-08-04] MEDS ORDERED: MIDAZOLAM 2 MG/2 ML VIAL IVP ONE (10:38)
[2018-08-04] MEDS ORDERED: NEOSTIGMINE 1 MG/1 ML 10 ML MDV IVP ONE (10:38)
[2018-08-04] MEDS ORDERED: DEXAMETHASONE 4 MG/ML VIAL IVP ONE (10:38)
[2018-08-04] MEDS ORDERED: ePHEDrine 50 MG/ML VIAL IVP ONE (10:38)
[2018-08-04] MEDS ORDERED: GLYCOPYRROLATE 1 MG/5 ML VIAL IVP ONE (10:38)
[2018-08-04] MEDS ORDERED: PROPOFOL 200 MG/20 ML VIAL IVP ONE (10:38)
[2018-08-04] MEDS ORDERED: ROCURONIUM 50 MG/5 ML VIAL IVP ONE (10:38)
[2018-08-04] MEDS ORDERED: LACTATED RINGERS 1,000 ML IV ONE ×3 (10:52→11:23)
[2018-08-04] MEDS ORDERED: ceFAZolin 1 GM VIAL IR ONE (11:10)
--- NOTE | 2018-08-04 11:36 | OPERATIVE REPORT ---
Operative Report - General Admit Date: 08/03/18 Procedure Date: 08/04/18 Planned Procedure: Diagnostic laparoscopy Pre-Op Diagnosis: Acute abdomen s/p colonoscopic polypectomy Procedure Performed: Diagnostic laparoscopy, with laparoscopic repair of ascending colon perforation. Post Op Diagnosis: Ascending colon perforation s/p colonoscopic polypectomy - Procedure Note Primary Surgeon: Reginaldo Carmona MD FACS Secondary Surgeon: Stephen Taylor MD FACS Anesthesia Provider: Manuel Warner CRNA Anesthesia Technique: General ET tube Pathology: Wedge resection of ascending colon perforation IV Fluids (mL): 1,300 Estimated Blood Loss (mL): 15 Urine Output (mL): 500 Drain/Tube Type: Guido drain (in pelvis and RLQ) Complications: None - Other Other Information/Narrative: After informed consent, pt was taken to the OR and placed under general endotracheal anesthesia. Preop preparation included administration of 3.375 gm of Zosyn and sequential calf compression boots. Her abdomen was prepared with Chloroprep and draped in the usual sterile fashion. A time out was performed. A vertical incision was made in the inferior aspect of the umbilicus and carried down through the layers of the abdominal wall until the peritoneum was identified and incised sharply. A 10mm Soto cannula was inserted and pneumoperitoneum achieved with carbon dioxide. A 10 mm 30 degree [place] telescope was inserted and laparoscopy was carried out with findings of generalized peritonitis and a 5 mm perforation in the midascending colon at the site of recent polypectomy. Photos were obtained to the relevant anatomy. 2 additional 5 mm ports were placed in the left lower quadrant and lower midline. Instruments were passed and the right colon was mobilized, exposing the site of perforation in the mid anterolateral ascending colon, which was partially walled off by the omentum. Viable bowel wall was evident surrounding the perforation. The edges of the perforation were picked up and a 60 mm Contour laparoscopic stapler with 4mm nisa was used to exclude and excise the area of perforation. The excised tissue was sent for pathology. The staple line was seen to be intact, viable and hemostatic. 3 liters of saline were then used to irrigate the abdominal cavity, 2 of which included 1 gm of cefoxitin. a 19F Guido drain was placed in the pelvis with its tip in the RLQ and made to exit the suprapubic port site and was secured with a 2-0 Nylon suture and attached to bulb suction. Instruments and cannulas were removed under direct vision and the remaining incisions were closed with 0-Vycril to close the midline fascia at the umbilicus and 4-0 Monocryl and Dermabond for the skin at the 2 remaining port sites. Anesthesia was terminated and the patient transferred to the [facility] in satisactory condition. Sponge and needle counts were correct x 2 and there were no apparent complications.
[2018-08-04] MEDS: FAMOTIDINE 20 MG/50 ML 50 ML IV SCH ×2 (12:54→21:39)
[2018-08-04] MEDS: LOSARTAN 50 MG TABLET PO SCH ×2 (12:57→21:39)
[2018-08-04] MEDS: METOPROLOL TARTRATE 25 MG TABLET PO SCH ×2 (12:57→21:38)
[2018-08-04] MEDS: KETOROLAC 30 MG/ML VIAL IVP PRN (21:27)
[2018-08-04] MEDS: SODIUM CHLORIDE FLUSH 0.9% 10 ML SYRINGE IVP PRN (21:28)
[2018-08-05] MEDS: LACTATED RINGERS 1,000 ML IV SCH (02:48)
[2018-08-05] MEDS: PIPERACILLIN/TAZOBACTAM 3.375 GM in SODIUM CHLORIDE 0.9% MINIBAG 100 ML IV SCH ×3 (03:29→19:57)
[2018-08-05] MEDS: SODIUM CHLORIDE FLUSH 0.9% 10 ML SYRINGE IVP SCH ×6 (04:55→16:43)
[2018-08-05 05:43] LABS: BASOPHILS % (AUTO) 0.1 %; HGB - HEMOGLOBIN 10.7 g/dL (12.0-16.0); LYMPHOCYTES # (AUTO) 1.1 10^3/uL (1.5-3.5); LYMPHOCYTES % (AUTO) 9.5 %; MEAN CORPUSCULAR HEMOGLOBIN 32.5 pg (27.0-31.0); MEAN CORPUSCULAR HGB CONC 33.8 g/dL (32.0-36.0); MEAN CORPUSCULAR VOLUME 96.2 fL (81.0-99.0); MEAN PLATELET VOLUME 7.6 fL (7.9-10.8); MONOCYTES # (AUTO) 0.3 10^3/uL (0.0-1.0); MONOCYTES % (AUTO) 2.9 %; NEUTROPHILS # (AUTO) 10.3 10^3/uL (1.5-6.6); NEUTROPHILS % (AUTO) 87.5 %; PLT - PLATELET COUNT 152 10^3/uL (130-450); RED CELL DISTRIBUTION WIDTH 12.9 % (12.0-15.0); WHITE BLOOD COUNT 11.7 x10^3/uL (4.8-10.8)
[2018-08-05 05:59] LABS: CREATININE 0.9 mg/dL (0.4-1.0)
[2018-08-05 06:00] LABS: ALBUMIN 2.7 g/dL (3.2-5.5); BILIRUBIN,TOTAL 0.8 mg/dL (0.2-1.0); CALCIUM 8.5 mg/dL (8.5-10.3); TOTAL PROTEIN 5.3 g/dL (6.7-8.2)
--- NOTE | 2018-08-05 07:44 | PROVIDER PROGRESS NOTE ---
Subjective - General Admit Date: 08/03/18 Procedure Date: 08/04/18 Post Op Days: 1 Procedure Performed: laparoscopic repair of colon perforation - Review of Systems Wound/Incisions: positive: Healing well HEENT: positive: No symptoms Pulmonary: positive: No symptoms Cardiovascular: positive: No symptoms Gastrointestinal: positive: Abdominal pain (minimal) Objective - Patient Data Reviewed Vital Signs: Yes Vital Signs: Vital Signs x48h Temp Pulse Resp BP Pulse Ox 08/05/18 04:00 37.2 C 82 16 130/70 95 08/05/18 00:00 36.9 C 78 16 131/69 H 99 Weight: Weight 08/03/18 08/04/18 08/05/18 23:59 23:59 23:59 Weight (kg) 64.5 kg Intake & Output: Intake and Output Totals x24h 08/03/18 08/04/18 08/05/18 23:59 23:59 23:59 Intake Total 3286.813 0284.667 986.667 Output Total 475 2220 670 Balance 1333.333 -16.333 316.667 - Lab Results Lab Results: 08/05/18 05:35 08/05/18 05:35 Other Lab Results: Lab Results x24hrs 08/05/18 08/05/18 Range/Units 05:35 05:35 WBC 11.7 H (4.8-10.8) x10^3/uL RBC 3.30 L (4.20-5.40) 10^6/uL Hgb 10.7 L (12.0-16.0) g/dL Hct 31.7 L (37.0-47.0) % MCV 96.2 (81.0-99.0) fL MCH 32.5 H (27.0-31.0) pg MCHC 33.8 (32.0-36.0) g/dL RDW 12.9 (12.0-15.0) % Plt Count 152 (130-450) 10^3/uL MPV 7.6 L (7.9-10.8) fL Neut # (Auto) 10.3 H (1.5-6.6) 10^3/uL Lymph # (Auto) 1.1 L (1.5-3.5) 10^3/uL [place] # (Auto) 0.3 (0.0-1.0) 10^3/uL Eos # (Auto) 0.0 (0.0-0.7) 10^3/uL Baso # (Auto) 0.0 (0.0-0.1) 10^3/uL Absolute Nucleated RBC 0.00 x10^3/uL Nucleated RBC % 0.0 /100WBC Sodium 140 (135-145) mmol/L Potassium 3.8 (3.5-5.0) mmol/L Chloride 109 (101-111) mmol/L Carbon Dioxide 26 (21-32) mmol/L Anion Gap 5.0 L (6-13) BUN 15 (6-20) mg/dL Creatinine 0.9 (0.4-1.0) mg/dL Estimated GFR (MDRD) 63 L (>89) Glucose 93 (70-100) mg/dL Calcium 8.5 (8.5-10.3) mg/dL Total Bilirubin 0.8 (0.2-1.0) mg/dL AST 24 (10-42) IU/L ALT 28 (10-60) IU/L Alkaline Phosphatase 47 (42-121) IU/L Total Protein 5.3 L (6.7-8.2) g/dL Albumin 2.7 L (3.2-5.5) g/dL Globulin 2.6 (2.1-4.2) g/dL Albumin/Globulin Ratio 1.0 (1.0-2.2) - Current Medications Current Medications: Current Medications Generic Name Dose Route Start Last Admin Trade Name Freq PRN Reason Stop Dose Admin Acetaminophen 100 mls @ 400 mls/hr 08/03/18 15:15 08/04/18 16:42 Ofirmev IV Infused Q6HR PRN Infusion PAIN Piperacillin Sod/Tazobactam 100 mls @ 200 mls/hr 08/03/18 22:00 08/05/18 04:00 Sod 3.375 gm/ Sodium Chloride IV Infused Q6H ELIEL Infusion Famotidine 50 mls @ 100 mls/hr 08/04/18 12:00 08/04/18 22:10 Pepcid 20 Mg/50 Ml IV Infused BID ELIEL Infusion Ketorolac Tromethamine 30 mg 08/04/18 11:58 08/04/18 21:27 Toradol Inj (30mg) IVP 08/08/18 15:14 30 mg Q6HR PRN Administration PAIN Losartan Potassium 50 mg 08/03/18 21:00 08/04/18 21:39 Cozaar PO 50 mg BID ELIEL Administration Metoprolol Tartrate 75 mg 08/03/18 21:00 08/04/18 21:38 Lopressor PO 75 mg BID ELIEL Administration Sodium Chloride 10 ml 08/03/18 17:00 08/05/18 04:55 Normal Saline Flush 0.9% IVP Not Given 0100,0900,1700 ELIEL Sodium Chloride 10 ml 08/04/18 17:00 08/05/18 04:55 Normal Saline Flush 0.9% IVP Not Given 0100,0900,1700 ELIEL Sodium Chloride 10 ml 08/04/18 11:49 08/04/18 21:28 Normal Saline Flush 0.9% IVP 10 ml PRN PRN Administration NEEDED PER PROVIDER ORDERS - Physical Exam Wound/Incisions: positive: Healing well General Appearance: positive: No acute distress, Alert Eyes Bilateral: positive: No scleral icterus ENT: positive: ENT inspection nml, No signs of dehydration Respiratory: positive: Chest non-tender, No respiratory distress, Rales (bibasilar) Cardiovascular: positive: Regular rate & rhythm, No murmur, No gallop Abdomen: positive: Nml bowel sounds, No distention, Tenderness (minimal) Skin: positive: Color nml, No rash, Warm, Dry Extremities: positive: No pedal edema. negative: Calf tenderness Neurologic/Psychiatric: positive: Oriented x3 ABX Reporting Has patient been on IV antibiotics over the past 48 hours?: Yes Impression/Plan - Problem List Problem List: Doing well except possible fluid overload; plan: d/c ivf, start liquid diet, oob.
[2018-08-05] MEDS: FAMOTIDINE 20 MG/50 ML 50 ML IV SCH ×2 (09:33→21:25)
[2018-08-05] MEDS: METOPROLOL TARTRATE 25 MG TABLET PO SCH ×2 (09:33→21:39)
[2018-08-05] MEDS: LOSARTAN 50 MG TABLET PO SCH ×2 (09:33→21:40)
[2018-08-05] MEDS: ENOXAPARIN 40 MG/0.4 ML SYRINGE SUBQ SCH (09:33)
[2018-08-05] MEDS: KETOROLAC 30 MG/ML VIAL IVP PRN ×2 (16:43→22:49)
[2018-08-06] MEDS: PIPERACILLIN/TAZOBACTAM 3.375 GM in SODIUM CHLORIDE 0.9% MINIBAG 100 ML IV SCH ×4 (00:15→19:12)
[2018-08-06] MEDS: SODIUM CHLORIDE FLUSH 0.9% 10 ML SYRINGE IVP SCH ×5 (00:15→19:12)
[2018-08-06 05:34] LABS: BASOPHILS % (AUTO) 0.3 %; EOSINOPHILS # (AUTO) 0.1 10^3/uL (0.0-0.7); EOSINOPHILS % (AUTO) 1.2 %; HGB - HEMOGLOBIN 10.5 g/dL (12.0-16.0); LYMPHOCYTES # (AUTO) 1.7 10^3/uL (1.5-3.5); LYMPHOCYTES % (AUTO) 17.6 %; MEAN CORPUSCULAR HEMOGLOBIN 33.3 pg (27.0-31.0); MEAN CORPUSCULAR HGB CONC 34.8 g/dL (32.0-36.0); MEAN CORPUSCULAR VOLUME 95.7 fL (81.0-99.0); MONOCYTES # (AUTO) 0.4 10^3/uL (0.0-1.0); MONOCYTES % (AUTO) 4.3 %; NEUTROPHILS # (AUTO) 7.3 10^3/uL (1.5-6.6); NEUTROPHILS % (AUTO) 76.6 %; PLT - PLATELET COUNT 144 10^3/uL (130-450); RED BLOOD COUNT 3.17 10^6/uL (4.20-5.40); RED CELL DISTRIBUTION WIDTH 12.7 % (12.0-15.0); WHITE BLOOD COUNT 9.5 x10^3/uL (4.8-10.8)
[2018-08-06 05:43] LABS: ALBUMIN 2.6 g/dL (3.2-5.5); BILIRUBIN,TOTAL 0.7 mg/dL (0.2-1.0); CALCIUM 8.1 mg/dL (8.5-10.3); CREATININE 0.8 mg/dL (0.4-1.0); TOTAL PROTEIN 5.3 g/dL (6.7-8.2)
[2018-08-06] MEDS: SODIUM CHLORIDE FLUSH 0.9% 10 ML SYRINGE IVP PRN ×2 (06:18→06:47)
[2018-08-06] MEDS ORDERED: IBUPROFEN 600 MG TABLET PO PRN (08:45)
[2018-08-06] MEDS ORDERED: oxyCODONE 5 MG TABLET PO PRN (08:47)
[2018-08-06] MEDS ORDERED: ACETAMINOPHEN 325 MG TABLET PO PRN (08:47)
--- NOTE | 2018-08-06 08:52 | PROVIDER PROGRESS NOTE ---
Subjective - General Admit Date: 08/05/18 Procedure Date: 08/04/18 Post Op Days: 2 Procedure Performed: laparoscopic repair of colon perforation - Review of Systems Wound/Incisions: positive: Healing well Drain Type: Guido Drain Output Description: serosanguinous Approximate mls Output: 220 yest General: positive: No symptoms (feeling much better; no n/v, no f/c, moving bowels (loose), voiding well) HEENT: positive: No symptoms Pulmonary: positive: No symptoms Cardiovascular: positive: No symptoms Gastrointestinal: positive: Abdominal pain (minimal), Flatus, Diarrhea. negative: Nausea, Vomiting Genitourinary: positive: No symptoms Objective - Patient Data Reviewed Vital Signs: Yes Vital Signs: Vital Signs x48h Temp Pulse Resp BP Pulse Ox 08/06/18 07:47 36.7 C 57 L 18 155/66 H 96 08/06/18 05:50 37.5 C 72 16 141/65 H 93 Intake & Output: Intake and Output Totals x24h 08/04/18 08/05/18 08/06/18 23:59 23:59 23:59 Intake Total 2203.667 3246.667 400 Output Total 2220 2070 710 Balance -16.333 1176.667 -310 - Lab Results Lab Results: 08/06/18 05:10 08/06/18 05:10 Other Lab Results: Lab Results x24hrs 08/06/18 08/06/18 Range/Units 05:10 05:10 WBC 9.5 (4.8-10.8) x10^3/uL RBC 3.17 L (4.20-5.40) 10^6/uL Hgb 10.5 L (12.0-16.0) g/dL Hct 30.3 L (37.0-47.0) % MCV 95.7 (81.0-99.0) fL MCH 33.3 H (27.0-31.0) pg MCHC 34.8 (32.0-36.0) g/dL RDW 12.7 (12.0-15.0) % Plt Count 144 (130-450) 10^3/uL MPV 8.0 (7.9-10.8) fL Neut # (Auto) 7.3 H (1.5-6.6) 10^3/uL Lymph # (Auto) 1.7 (1.5-3.5) 10^3/uL Flagler # (Auto) 0.4 (0.0-1.0) 10^3/uL Eos # (Auto) 0.1 (0.0-0.7) 10^3/uL Baso # (Auto) 0.0 (0.0-0.1) 10^3/uL Absolute Nucleated RBC 0.00 x10^3/uL Nucleated RBC % 0.0 /100WBC Sodium 140 (135-145) mmol/L Potassium 3.3 L (3.5-5.0) mmol/L Chloride 109 (101-111) mmol/L Carbon Dioxide 24 (21-32) mmol/L Anion Gap 7.0 (6-13) BUN 13 (6-20) mg/dL Creatinine 0.8 (0.4-1.0) mg/dL Estimated GFR (MDRD) 72 L (>89) Glucose 84 (70-100) mg/dL Calcium 8.1 L (8.5-10.3) mg/dL Total Bilirubin 0.7 (0.2-1.0) mg/dL AST 28 (10-42) IU/L ALT 28 (10-60) IU/L Alkaline Phosphatase 61 (42-121) IU/L Total Protein 5.3 L (6.7-8.2) g/dL Albumin 2.6 L (3.2-5.5) g/dL Globulin 2.7 (2.1-4.2) g/dL Albumin/Globulin Ratio 1.0 (1.0-2.2) Peritoneal fluid C&S: E. coli S to everything tested - Current Medications Current Medications: Current Medications Generic Name Dose Route Start Last Admin Trade Name Freq PRN Reason Stop Dose Admin Enoxaparin Sodium 40 mg 08/05/18 09:00 08/05/18 09:33 Lovenox SUBQ 40 mg DAILY ELIEL Administration Piperacillin Sod/Tazobactam 100 mls @ 200 mls/hr 08/05/18 13:00 08/06/18 06:45 Sod 3.375 gm/ Sodium Chloride IV Infused Q6H ELIEL Infusion Losartan Potassium 50 mg 08/03/18 21:00 08/05/18 21:40 Cozaar PO 50 mg BID ELIEL Administration Metoprolol Tartrate 75 mg 08/03/18 21:00 08/05/18 21:39 Lopressor PO 75 mg BID ELIEL Administration Sodium Chloride 10 ml 08/03/18 17:00 08/06/18 00:15 Normal Saline Flush 0.9% IVP 10 ml 0100,0900,1700 ELIEL Administration Sodium Chloride 10 ml 08/03/18 15:15 08/06/18 06:47 Normal Saline Flush 0.9% IVP 10 ml PRN PRN Administration NEEDED PER PROVIDER ORDERS Sodium Chloride 10 ml 08/04/18 17:00 08/06/18 00:44 Normal Saline Flush 0.9% IVP 10 ml 0100,0900,1700 ELIEL Administration Sodium Chloride 10 ml 08/04/18 11:49 08/04/18 21:28 Normal Saline Flush 0.9% IVP 10 ml PRN PRN Administration NEEDED PER PROVIDER ORDERS - Physical Exam Wound/Incisions: positive: Healing well General Appearance: positive: No acute distress, Alert Eyes Bilateral: positive: Conjunctivae nml, No scleral icterus ENT: positive: Pharynx nml, No signs of dehydration Neck: positive: No JVD Respiratory: positive: Chest non-tender, No respiratory distress, Breath sounds nml Cardiovascular: positive: Regular rate & rhythm, No murmur, No gallop Abdomen: positive: Non-tender, Nml bowel sounds. negative: No distention, Guarding, Rebound, Hepatomegaly, Splenomegaly, Mass Extremities: positive: No pedal edema. negative: Calf tenderness Neurologic/Psychiatric: positive: Oriented x3 ABX Reporting Has patient been on IV antibiotics over the past 48 hours?: Yes Impression/Plan - Problem List Problem List: Doing well PO Day 2 s/p laparoscopic repair of colon perforation. Plan: advance diet, po meds, increase activity; home tomorrow if continues to improve.
[2018-08-06] MEDS: ENOXAPARIN 40 MG/0.4 ML SYRINGE SUBQ SCH (09:08)
[2018-08-06] MEDS: LOSARTAN 50 MG TABLET PO SCH ×2 (09:08→20:15)
[2018-08-06] MEDS: METOPROLOL TARTRATE 25 MG TABLET PO SCH ×2 (09:08→20:14)
[2018-08-06] MEDS: SACCHAROMYCES BOULARDII 250 MG CAPSULE PO SCH (17:10)
[2018-08-07] MEDS: SODIUM CHLORIDE FLUSH 0.9% 10 ML SYRINGE IVP SCH ×2 (00:14→09:28)
[2018-08-07] MEDS: PIPERACILLIN/TAZOBACTAM 3.375 GM in SODIUM CHLORIDE 0.9% MINIBAG 100 ML IV SCH ×2 (00:14→06:32)
[2018-08-07] MEDS: SODIUM CHLORIDE FLUSH 0.9% 10 ML SYRINGE IVP PRN ×3 (00:48→07:01)
[2018-08-07 04:54] LABS: BASOPHILS % (AUTO) 0.5 %; EOSINOPHILS # (AUTO) 0.2 10^3/uL (0.0-0.7); EOSINOPHILS % (AUTO) 2.9 %; HGB - HEMOGLOBIN 10.7 g/dL (12.0-16.0); LYMPHOCYTES # (AUTO) 1.7 10^3/uL (1.5-3.5); LYMPHOCYTES % (AUTO) 27.8 %; MEAN CORPUSCULAR HEMOGLOBIN 32.8 pg (27.0-31.0); MEAN CORPUSCULAR HGB CONC 34.7 g/dL (32.0-36.0); MEAN CORPUSCULAR VOLUME 94.8 fL (81.0-99.0); MEAN PLATELET VOLUME 7.7 fL (7.9-10.8); MONOCYTES # (AUTO) 0.4 10^3/uL (0.0-1.0); NEUTROPHILS # (AUTO) 3.7 10^3/uL (1.5-6.6); NEUTROPHILS % (AUTO) 61.8 %; PLT - PLATELET COUNT 171 10^3/uL (130-450); RED BLOOD COUNT 3.25 10^6/uL (4.20-5.40); RED CELL DISTRIBUTION WIDTH 12.8 % (12.0-15.0); WHITE BLOOD COUNT 5.9 x10^3/uL (4.8-10.8)
[2018-08-07 05:04] LABS: ALBUMIN 2.9 g/dL (3.2-5.5); ALBUMIN/GLOBULIN RATIO 1.1 (1.0-2.2); BILIRUBIN,TOTAL 0.6 mg/dL (0.2-1.0); CALCIUM 8.2 mg/dL (8.5-10.3); CREATININE 0.7 mg/dL (0.4-1.0); TOTAL PROTEIN 5.5 g/dL (6.7-8.2)
[2018-08-07] MEDS: SACCHAROMYCES BOULARDII 250 MG CAPSULE PO SCH (07:55)
--- NOTE | 2018-08-07 09:13 | PROVIDER PROGRESS NOTE ---
Subjective - General Admit Date: 08/05/18 Procedure Date: 08/04/18 Post Op Days: 3 Procedure Performed: laparoscopic repair of colon perforation - Review of Systems Wound/Incisions: positive: Healing well Drain Type: Guido Drain Output Description: serosanguinous Approximate mls Output: 95 yest General: positive: No symptoms (feeling much better; no n/v, no f/c, moving bowels (loose), voiding well) HEENT: positive: No symptoms Pulmonary: positive: No symptoms Cardiovascular: positive: No symptoms Gastrointestinal: positive: Abdominal pain (minimal; no longer using narcotics), Flatus, Diarrhea (3 loose nonbloody stools yest). negative: Nausea, Vomiting Genitourinary: positive: No symptoms Objective - Patient Data Reviewed Vital Signs: Yes Vital Signs: Vital Signs x48h Temp Pulse Resp BP Pulse Ox 08/07/18 07:38 36.4 C L 67 18 158/74 H 99 08/07/18 04:01 37.3 C 65 16 148/69 H 96 Intake & Output: Intake and Output Totals x24h 08/05/18 08/06/18 08/07/18 23:59 23:59 23:59 Intake Total 3246.667 2560 790 Output Total 2070 3595 1655 Balance 1176.667 -1035 -865 - Lab Results Lab Results: 08/07/18 04:45 08/07/18 04:45 Other Lab Results: Lab Results x24hrs 08/07/18 08/07/18 Range/Units 04:45 04:45 WBC 5.9 (4.8-10.8) x10^3/uL RBC 3.25 L (4.20-5.40) 10^6/uL Hgb 10.7 L (12.0-16.0) g/dL Hct 30.8 L (37.0-47.0) % MCV 94.8 (81.0-99.0) fL MCH 32.8 H (27.0-31.0) pg MCHC 34.7 (32.0-36.0) g/dL RDW 12.8 (12.0-15.0) % Plt Count 171 (130-450) 10^3/uL MPV 7.7 L (7.9-10.8) fL Neut # (Auto) 3.7 (1.5-6.6) 10^3/uL Lymph # (Auto) 1.7 (1.5-3.5) 10^3/uL Weber # (Auto) 0.4 (0.0-1.0) 10^3/uL Eos # (Auto) 0.2 (0.0-0.7) 10^3/uL Baso # (Auto) 0.0 (0.0-0.1) 10^3/uL Absolute Nucleated RBC 0.00 x10^3/uL Nucleated RBC % 0.1 /100WBC Sodium 141 (135-145) mmol/L Potassium 3.2 L (3.5-5.0) mmol/L Chloride 113 H (101-111) mmol/L Carbon Dioxide 23 (21-32) mmol/L Anion Gap 5.0 L (6-13) BUN 9 (6-20) mg/dL Creatinine 0.7 (0.4-1.0) mg/dL Estimated GFR (MDRD) 84 L (>89) Glucose 92 (70-100) mg/dL Calcium 8.2 L (8.5-10.3) mg/dL Total Bilirubin 0.6 (0.2-1.0) mg/dL AST 26 (10-42) IU/L ALT 30 (10-60) IU/L Alkaline Phosphatase 61 (42-121) IU/L Total Protein 5.5 L (6.7-8.2) g/dL Albumin 2.9 L (3.2-5.5) g/dL Globulin 2.6 (2.1-4.2) g/dL Albumin/Globulin Ratio 1.1 (1.0-2.2) peritoneal fluid c/s: E. coli S to everything tested - Current Medications Current Medications: Current Medications Generic Name Dose Route Start Last Admin Trade Name Freq PRN Reason Stop Dose Admin Enoxaparin Sodium 40 mg 08/05/18 09:00 08/06/18 09:08 Lovenox SUBQ 40 mg DAILY ELIEL Administration Piperacillin Sod/Tazobactam 100 mls @ 200 mls/hr 08/05/18 13:00 08/07/18 07:00 Sod 3.375 gm/ Sodium Chloride IV Infused Q6H ELIEL Infusion Ibuprofen 600 mg 08/06/18 08:45 08/06/18 20:15 Motrin PO 600 mg Q6HR PRN Administration PAIN Losartan Potassium 50 mg 08/03/18 21:00 08/06/18 20:15 Cozaar PO 50 mg BID ELIEL Administration Metoprolol Tartrate 75 mg 08/03/18 21:00 08/06/18 20:14 Lopressor PO 75 mg BID ELIEL Administration Saccharomyces Boulardii 500 mg 08/06/18 17:00 08/07/18 07:55 Florastor PO 500 mg BIDWM ELIEL Administration Sodium Chloride 10 ml 08/04/18 17:00 08/07/18 00:14 Normal Saline Flush 0.9% IVP 10 ml 0100,0900,1700 ELIEL Administration Sodium Chloride 10 ml 08/04/18 11:49 08/07/18 07:01 Normal Saline Flush 0.9% IVP 10 ml PRN PRN Administration NEEDED PER PROVIDER ORDERS - Physical Exam Wound/Incisions: positive: Healing well, Drainage (from j/p serosanguinous) General Appearance: positive: No acute distress, Alert Eyes Bilateral: positive: No scleral icterus ENT: positive: No signs of dehydration Abdomen: positive: Non-tender, No organomegaly, Nml bowel sounds, No distention, Other (incisions healing well; j/p removed.). negative: Tenderness, Guarding, Rebound, Mass Extremities: positive: No pedal edema. negative: Calf tenderness Neurologic/Psychiatric: positive: Oriented x3 ABX Reporting Has patient been on IV antibiotics over the past 48 hours?: Yes Impression/Plan - Problem List Problem List: Doing well PO day 3 s/p lap repair of colon perforation following colonoscopic polypectomy. Plan: home today; low residue diet; non narcotic analgesics; precautions; 4 more days of oral antibiotics; RTO 1 week.
--- NOTE | 2018-08-07 09:20 | Discharge Plan ---
Discharge Plan Disposition: Home, Self Care Condition: Good Prescriptions: Acetaminophen 650 mg PO Q6H PRN #60 tablet PRN Reason: Pain Amox/Clav 875/125 [Augmentin] 1 each PO Q12H 5 Days #10 tablet Ibuprofen 600 mg PO Q6H PRN #60 tablet PRN Reason: Pain Saccharomyces Boulardii [Florastor] 500 mg PO BID 30 Days #60 capsule Diet: Regular (low residue until diarrhea stops, then resume regular diet as landy; eat potassium rich foods until diarrhea resolves.) Activity Restrictions: no lifting more than 10 lbs for 1 week Shower Restrictions: No Driving Restrictions: No Weight Bearing: Full Weight Additional Instructions or Follow Up instructions: F/u with Dr. Carmona in his office in 1 wk; call [phone] for appt No Smoking: If you smoke, Please STOP! Call for help. Follow-up with: Ness Wallace PA-C [Primary Care Provider] -
--- NOTE | 2018-08-07 09:23 | DISCHARGE SUMMARY ---
"Discharge Summary Admit Date: 08/03/18 Discharge Date: 08/07/18 Discharging Provider: Dr. Reginaldo Carmona Code Status: Attempt Resuscitation Condition at Discharge: Good Discharge Disposition: 01 Home, Self Care Discharge Facility Name: [facility] - DIAGNOSES Admission Diagnoses: Colon perforation s/p colonoscopic polypectomy Discharge Diagnoses with Status of Each Condition: Resolved following laparoscopic repair of colon perforation - HPI History of Present Illness: See H & P by Dr. Carmona - CONSULTS | PROCEDURES Procedures: Laparoscopic repair of colon perforation on 08/04/2018 - HOSPITAL COURSE Hospital Course: Pt was admitted for observation with abd pain following colonoscopy and polypectomy x 2, with neg CT scan for evidence of perforation. However the day following admission she developed signs of an acute surgical abdomen and was taken to the OR where the above noted procedure was carried out. See op report for details. Postop course was uncomplicated with resolution of signs of infection and ileus and resumption of nl oral intake and bowel function. Her stools were loose at d/c with no fever and a benign abdomen with incisions healing well. Her Guido drain was removed prior to d/c home. - ALLERGIES Allergies/Adverse Reactions: Allergies Allergy/AdvReac Type Severity Reaction Status Date / Time hydrochlorothiazide Allergy Rash Verified 08/03/18 12:19 Sulfa (Sulfonamide Allergy Rash Verified 09/13/15 17:07 Antibiotics) - MEDICATIONS Home Medications: Ambulatory Orders Medication Instructions Recorded Confirmed Losartan [Cozaar] 50 mg PO BID 09/13/15 08/05/18 Metoprolol Tartrate 75 mg PO BID 09/13/15 08/05/18 Simvastatin 40 mg PO DAILY 09/13/15 08/05/18 Aspirin EC [Ecotrin] 325 tab PO DAILY 08/02/18 08/05/18 Calcium Carbonate [Calcium] 600 tab PO DAILY 08/02/18 08/05/18 Cholecalciferol (Vitamin D3) 2,000 unit PO DAILY 08/02/18 08/05/18 [Vitamin D3] Loratadine [Allergy] 10 tab PO DAILY 08/02/18 08/05/18 Multivitamin [Multiple Vitamins] 1 tab PO DAILY 08/02/18 08/05/18 Acetaminophen 650 mg PO Q6H PRN #60 tablet 08/07/18 Amox/Clav 875/125 [Augmentin] 1 each PO Q12H 5 Days #10 tablet 08/07/18 Ibuprofen 600 mg PO Q6H PRN #60 tablet 08/07/18 Saccharomyces Boulardii [Florastor] 500 mg PO BID 30 Days #60 capsule 08/07/18 - PHYSICAL EXAM AT DISCHARGE General Appearance: positive: No acute distress, Alert Eyes Bilateral: positive: No scleral icterus ENT: positive: No signs of dehydration Abdomen: positive: Non-tender, No organomegaly, Nml bowel sounds, No distention. negative: Guarding, Rebound, Mass Skin: positive: Color nml, Warm, Dry Extremities: positive: No pedal edema. negative: Calf tenderness Neurologic/Psychiatric: positive: Oriented x3 - LABS Result Diagrams: 08/07/18 04:45 08/07/18 04:45 Other Lab Results: Peritoneal fluid C&S showed E. coli lazo sensitive. - FOLLOW UP Follow Up: Dr. Carmona in 1 week. - TIME SPENT Time Spent in Discharge (Minutes): 30"
[2018-08-07] MEDS: METOPROLOL TARTRATE 25 MG TABLET PO SCH (09:27)
[2018-08-07] MEDS: LOSARTAN 50 MG TABLET PO SCH (09:27)
[2018-08-07] MEDS: ENOXAPARIN 40 MG/0.4 ML SYRINGE SUBQ SCH (09:28)
[2018-08-07 10:11] VITALS: BP 158/88
== END 2018-08-07 10:29 | disposition home or self-care (01) | DRG 329 ==
LOC: EDUNIT# → ED 12:14 → MS2 15:15 → OBSVTOIN 08-05 16:17
PROVIDERS: ADMIT Internal Medicine Gastroenterology; ATTEND Internal Medicine Gastroenterology
PROC: 0DQ Gastrointestinal System, Repair (ICD-10-PCS; principal; 2018-08-04 08:57)
DX: K91.89 Other postprocedural complications and disorders of digestive system (principal); K63.1 Perforation of intestine (nontraumatic); Y83.9 Surgical procedure, unspecified as the cause of abnormal reaction of the patient, or of later complication, without mention of misadventure at the time of the procedure; G89.18 Other acute postprocedural pain; I10 Essential (primary) hypertension; E78.00 Pure hypercholesterolemia, unspecified
CPT/HCPCS: 36415; 74021; 74177; 80048; 80053; 81001; 81003; 85025; 86850; 86900; 86901; 87070; 87077; 87086; 87181; 87205; 93005; 96361; 96365; 96366; 96367; 96375; 96376; 99284

== ENCOUNTER 2018-09-05 15:59 | Outpatient (CLI) | payer OTHER ==
--- NOTE | 2018-09-06 09:14 | Mammography Report ---
Reason: BILAT SCREEN w OLVIN Procedure Date: 09/05/2018 Accession Number: [id number] / [id number] Procedure: ALEXEY - Screening Mammo w/Olvin CPT Code: FULL RESULT: EXAM: Screening Mammo w/Olvin DATE: 09/05/2018 4:28 PM CLINICAL HISTORY: Routine screening TECHNIQUE: Bilateral CC and MLO views were obtained. COMPARISON: 12/28/2016, 09/15/2014, 06/11/2012, 03/03/2011, 12/09/2009, 07/21/2008 FINDINGS: There are scattered fibroglandular densities. No significant interval change. No suspicious masses, clustered microcalcifications, or regions of architectural distortion are identified. IMPRESSION: Negative examination RECOMMENDATION: Routine annual screening unless otherwise clinically indicated. BIRADS CATEGORY 1: Negative STANDARD QUALIFYING STATEMENTS: 1. This examination was not reviewed with the aid of Computer-Aided Detection (CAD). 2. A negative or benign imaging report should not delay biopsy if clinically suspicious findings are present. Consider surgical consultation if warrented. More than 5% of cancers are not identified by imaging. 3. Dense breasts may obscure an underlying neoplasm. 4. This examination was reviewed with the aid of 3D breast imaging (tomosynthesis).
== END 2018-09-05 16:00 | disposition home or self-care (01) ==
LOC: DI 15:59
DX: Z12.31 Encounter for screening mammogram for malignant neoplasm of breast (principal)
CPT/HCPCS: 77063; 77067

== ENCOUNTER 2018-12-30 09:03 | Outpatient (CLI) | payer OTHER ==
[2018-12-30 09:18] LABS: BASOPHILS % (AUTO) 0.4 %; EOSINOPHILS # (AUTO) 0.1 10^3/uL (0.0-0.7); EOSINOPHILS % (AUTO) 1.5 %; HGB - HEMOGLOBIN 13.3 g/dL (12.0-16.0); LYMPHOCYTES % (AUTO) 41.5 %; MEAN CORPUSCULAR HEMOGLOBIN 32.4 pg (27.0-31.0); MEAN CORPUSCULAR HGB CONC 34.3 g/dL (32.0-36.0); MEAN CORPUSCULAR VOLUME 94.7 fL (81.0-99.0); MEAN PLATELET VOLUME 7.5 fL (7.9-10.8); MONOCYTES # (AUTO) 0.4 10^3/uL (0.0-1.0); MONOCYTES % (AUTO) 8.2 %; NEUTROPHILS # (AUTO) 2.3 10^3/uL (1.5-6.6); NEUTROPHILS % (AUTO) 48.4 %; PLT - PLATELET COUNT 200 10^3/uL (130-450); RED BLOOD COUNT 4.09 10^6/uL (4.20-5.40); RED CELL DISTRIBUTION WIDTH 12.8 % (12.0-15.0); WHITE BLOOD COUNT 4.8 x10^3/uL (4.8-10.8)
[2018-12-30 09:37] LABS: ALBUMIN 3.9 g/dL (3.2-5.5); ALBUMIN/GLOBULIN RATIO 1.3 (1.0-2.2); ALKALINE PHOSPHATASE 61 IU/L (42-121); ALT ALANINE AMINOTRANSFERASE 26 IU/L (10-60); AST ASPARTATE AMINOTRANSFERASE 27 IU/L (10-42); BUN - BLOOD UREA NITROGEN 15 mg/dL (6-20); CALCIUM 9.1 mg/dL (8.5-10.3); CARBON DIOXIDE - CO2 26 mmol/L (21-32); CHLORIDE 106 mmol/L (101-111); CHOLESTEROL 198 mg/dL; CREATININE 0.7 mg/dL (0.4-1.0); GFR - MDRD 84 (>89); GLUCOSE 110 mg/dL (70-100); HDL CHOLESTEROL 67 mg/dL; LDL CHOLESTEROL,CALCULATED 105 mg/dL; LDL/HDL RATIO 1.6 (<4.4); SODIUM 139 mmol/L (135-145); VLDL CHOLESTEROL 26 mg/dL
== END 2018-12-30 09:04 | disposition home or self-care (01) ==
LOC: LAB 09:03
PROVIDERS: ATTEND Physician Assistant Medical
DX: E78.5 Hyperlipidemia, unspecified (principal); J30.9 Allergic rhinitis, unspecified
CPT/HCPCS: 36415; 80053; 80061; 83721; 85025

== ENCOUNTER 2020-03-04 08:55 | Outpatient (CLI) | payer MEDICARE, OTHER ==
[2020-03-04 09:26] LABS: BASOPHILS % (AUTO) 0.4 %; EOSINOPHILS % (AUTO) 0.8 %; HGB - HEMOGLOBIN 13.1 g/dL (12.0-16.0); LYMPHOCYTES # (AUTO) 2.1 10^3/uL (1.5-3.5); LYMPHOCYTES % (AUTO) 39.4 %; MEAN CORPUSCULAR HEMOGLOBIN 33.2 pg (27.0-31.0); MEAN CORPUSCULAR VOLUME 97.5 fL (81.0-99.0); MEAN PLATELET VOLUME 9.6 fL (7.9-10.8); MONOCYTES # (AUTO) 0.4 10^3/uL (0.0-1.0); MONOCYTES % (AUTO) 8.3 %; NEUTROPHILS # (AUTO) 2.7 10^3/uL (1.5-6.6); NEUTROPHILS % (AUTO) 50.7 %; PLT - PLATELET COUNT 202 10^3/uL (130-450); RED BLOOD COUNT 3.95 10^6/uL (4.20-5.40); RED CELL DISTRIBUTION WIDTH 12.5 % (12.0-15.0); WHITE BLOOD COUNT 5.3 x10^3/uL (4.8-10.8)
[2020-03-04 09:28] LABS: ALBUMIN 4.2 g/dL (3.2-5.5); ALBUMIN/GLOBULIN RATIO 1.4 (1.0-2.2); ALKALINE PHOSPHATASE 58 IU/L (42-121); ALT ALANINE AMINOTRANSFERASE 24 IU/L (10-60); AST ASPARTATE AMINOTRANSFERASE 24 IU/L (10-42); BILIRUBIN,TOTAL 1.2 mg/dL (0.2-1.0); BUN - BLOOD UREA NITROGEN 16 mg/dL (6-20); CARBON DIOXIDE - CO2 25 mmol/L (21-32); CHLORIDE 106 mmol/L (101-111); CHOL/HDL RATIO 3.4 (<4.4); CHOLESTEROL 208 mg/dL; CREATININE 0.8 mg/dL (0.4-1.0); GLUCOSE 103 mg/dL (70-100); HDL CHOLESTEROL 62 mg/dL; LDL CHOLESTEROL,CALCULATED 125 mg/dL; SODIUM 138 mmol/L (135-145); TOTAL PROTEIN 7.1 g/dL (6.7-8.2); VLDL CHOLESTEROL 21 mg/dL
[2020-03-04 09:34] LABS: HB2 TOTAL 13.2 g/dL; HEMOGLOBIN A1C 0.49 g/dL; HEMOGLOBIN A1C % 5.5 % (4.6-6.2)
== END 2020-03-04 08:56 | disposition home or self-care (01) ==
LOC: LAB 08:55
PROVIDERS: ATTEND Physician Assistant Medical
DX: E78.5 Hyperlipidemia, unspecified (principal); J30.9 Allergic rhinitis, unspecified; R73.9 Hyperglycemia, unspecified
CPT/HCPCS: 36415; 80053; 80061; 83036; 83721; 85025

== ENCOUNTER 2020-08-31 08:31 | Outpatient (CLI) | payer MEDICARE ==
[2020-08-31 09:05] LABS: CHOL/HDL RATIO 3.2 (<4.4); CHOLESTEROL 190 mg/dL; HDL CHOLESTEROL 59 mg/dL; LDL CHOLESTEROL,CALCULATED 105 mg/dL; LDL/HDL RATIO 1.8 (<4.4); VLDL CHOLESTEROL 26 mg/dL
== END 2020-08-31 08:32 | disposition home or self-care (01) ==
LOC: LAB 08:31
PROVIDERS: ATTEND Internal Medicine Cardiovascular Disease
DX: E78.5 Hyperlipidemia, unspecified (principal)
CPT/HCPCS: 36415; 80061; 83721

== ENCOUNTER 2020-12-31 15:28 | Outpatient (CLI) | payer MEDICARE ==
--- NOTE | 2021-01-17 08:15 | Mammography Report ---
BILATERAL DIGITAL SCREENING MAMMOGRAM 3D/2D: 12/31/2020 CLINICAL: Routine screening. Comparison is made to exams dated: 09/05/2018 mammogram, 12/28/2016 mammogram, and 09/15/2014 mammogra m - [facility]. The tissue of both breasts is predominantly fatty. No significant masses, calcifications, or other findings are seen in either breast. There has been no significant interval change. IMPRESSION: NEGATIVE There is no mammographic evidence of malignancy. A 1 year screening mammogram is recommended. This exam was interpreted at Station ID: [id number]. NOTE: For mammograms, a report in lay terms will be sent to the patient. Approximately 15% of breast malignancies will not be visualized mammographically. In the management of a palpable breast mass, a negative mammogram must not discourage biopsy of a clinically suspicious lesion. Electronically Signed By: Yefri Hagan acr/penrad:12/31/2020 19:39:50 ACR BI-RADS Category 1: Negative 3341F PARENCHYMAL PATTERN: (F) - The breast(s) demonstrate(s) diffuse fatty replacement. BI-RADS CATEGORY: (1) - 1 RECOMMENDATION: (ANNUAL) - Recommend routine annual screening mammography. [id number] 1 year screening LATERALITY: (B)
== END 2020-12-31 15:29 | disposition home or self-care (01) ==
LOC: DI 15:28
DX: Z12.31 Encounter for screening mammogram for malignant neoplasm of breast (principal)

== ENCOUNTER 2021-01-13 07:55 | Outpatient (CLI) | payer MEDICARE ==
[2021-01-13 08:32] LABS: BASOPHILS % (AUTO) 0.5 %; EOSINOPHILS # (AUTO) 0.1 10^3/uL (0.0-0.7); HCT - HEMATOCRIT 38.7 % (37.0-47.0); HGB - HEMOGLOBIN 12.7 g/dL (12.0-16.0); LYMPHOCYTES % (AUTO) 34.8 %; MEAN CORPUSCULAR HEMOGLOBIN 32.6 pg (27.0-31.0); MEAN CORPUSCULAR HGB CONC 32.8 g/dL (32.0-36.0); MEAN CORPUSCULAR VOLUME 99.2 fL (81.0-99.0); MEAN PLATELET VOLUME 9.6 fL (7.9-10.8); MONOCYTES # (AUTO) 0.5 10^3/uL (0.0-1.0); MONOCYTES % (AUTO) 8.1 %; NEUTROPHILS # (AUTO) 3.2 10^3/uL (1.5-6.6); NEUTROPHILS % (AUTO) 55.3 %; PLT - PLATELET COUNT 191 10^3/uL (130-450); RED CELL DISTRIBUTION WIDTH 12.6 % (12.0-15.0); WHITE BLOOD COUNT 5.8 x10^3/uL (4.8-10.8)
[2021-01-13 08:54] LABS: ALBUMIN 4.2 g/dL (3.2-5.5); ALBUMIN/GLOBULIN RATIO 1.4 (1.0-2.2); ALKALINE PHOSPHATASE 66 IU/L (42-121); ALT ALANINE AMINOTRANSFERASE 29 IU/L (10-60); AST ASPARTATE AMINOTRANSFERASE 25 IU/L (10-42); BUN - BLOOD UREA NITROGEN 13 mg/dL (6-20); CALCIUM 9.5 mg/dL (8.5-10.3); CARBON DIOXIDE - CO2 26 mmol/L (21-32); CHLORIDE 107 mmol/L (101-111); CHOL/HDL RATIO 2.7 (<4.4); CHOLESTEROL 173 mg/dL; CREATININE 0.7 mg/dL (0.4-1.0); GFR - MDRD 84 (>89); GLUCOSE 107 mg/dL (70-100); HDL CHOLESTEROL 63 mg/dL; LDL CHOLESTEROL,CALCULATED 87 mg/dL; LDL/HDL RATIO 1.4 (<4.4); POTASSIUM 3.9 mmol/L (3.5-5.0); SODIUM 141 mmol/L (135-145); TOTAL PROTEIN 7.1 g/dL (6.7-8.2); TRIGLYCERIDES 114 mg/dL; VLDL CHOLESTEROL 23 mg/dL
[2021-01-13 10:42] LABS: THYROID STIMULATING HORMONE 3.51 uIU/mL (0.34-5.60)
[2021-01-13 12:10] LABS: ESTIMATED AVERAGE GLUCOSE 100 mg/dL (70-100); HEMOGLOBIN A1c% 5.1 % (4.27-6.07)
== END 2021-01-13 07:56 | disposition home or self-care (01) ==
LOC: LAB 07:55
PROVIDERS: ATTEND Physician Assistant Medical
DX: Z00.00 Encounter for general adult medical examination without abnormal findings (principal); I10 Essential (primary) hypertension; R73.9 Hyperglycemia, unspecified; E78.5 Hyperlipidemia, unspecified; M85.80 Other specified disorders of bone density and structure, unspecified site
CPT/HCPCS: 36415; 80053; 80061; 83036; 83721; 84443; 85025

== ENCOUNTER 2021-03-23 10:52 | Outpatient (CLI) | payer MEDICARE ==
--- NOTE | 2021-03-23 12:56 | DEXA Report ---
PROCEDURE: Dexa Spine and/or Hip INDICATIONS: POST MENOPAUSAL TECHNIQUE: Dual energy x-ray absorptiometry (DXA) was performed on a [employer] System. Regions measur ed are the AP Spine, femoral neck, and if needed forearm. COMPARISON: None. FINDINGS: Lumbar Spine: Bone Mineral Density 1.082 g/cm/cm,T score -0.8, Left Femoral Neck: Bone Mineral Density 0.841 g/cm/cm, T score -1.3, (T score greater or equal to -1.0: NORMAL) (T score from -1.1 to -2.4: OSTEOPENIA) (T score less than or equal to -2.5 to: OSTEOPOROSIS) Impression: Osteopenia. Patients with diagnosis of osteoporosis or osteopenia should have regular bone mineral density assess ment. For those eligible for Medicare, routine testing is allowed once every 2 years. Testing frequ ency can be increased for patients who have rapidly progressing disease or for those who are receivin g medical therapy to restore bone mass. Reviewed by: Garth Romo MD on 03/23/2021 12:54 PM PDT Approved by: Garth Romo MD on 03/23/2021 12:54 PM PDT Station ID: [id number]
== END 2021-03-23 10:53 | disposition home or self-care (01) ==
LOC: DI 10:52
PROVIDERS: ATTEND Physician Assistant Medical
DX: M85.88 Other specified disorders of bone density and structure, other site (principal)

== ENCOUNTER 2021-11-22 08:01 | Outpatient (CLI) | payer MEDICARE ==
[2021-11-22 08:34] LABS: CHOL/HDL RATIO 2.9 (<4.4); CHOLESTEROL 170 mg/dL; HDL CHOLESTEROL 59 mg/dL; LDL CHOLESTEROL,CALCULATED 91 mg/dL; LDL/HDL RATIO 1.5 (<4.4); TRIGLYCERIDES 98 mg/dL; VLDL CHOLESTEROL 20 mg/dL
== END 2021-11-22 08:02 | disposition home or self-care (01) ==
LOC: LAB 08:01
PROVIDERS: ATTEND Internal Medicine Cardiovascular Disease
DX: E78.5 Hyperlipidemia, unspecified (principal)
CPT/HCPCS: 36415; 80061; 83721

== ENCOUNTER 2023-02-23 08:49 | Outpatient (CLI) | payer MEDICARE ==
[2023-02-23 09:46] LABS: ALBUMIN 3.7 g/dL (3.2-5.5); ALBUMIN/GLOBULIN RATIO 1.2 (1.0-2.2); ALKALINE PHOSPHATASE 70 IU/L (42-121); ALT ALANINE AMINOTRANSFERASE 30 IU/L (10-60); AST ASPARTATE AMINOTRANSFERASE 25 IU/L (10-42); BILIRUBIN,TOTAL 0.7 mg/dL (0.2-1.0); BUN - BLOOD UREA NITROGEN 11 mg/dL (6-20); CALCIUM 9.1 mg/dL (8.5-10.3); CARBON DIOXIDE - CO2 27 mmol/L (21-32); CHLORIDE 107 mmol/L (101-111); CHOL/HDL RATIO 2.7 (<4.4); CHOLESTEROL 152 mg/dL; CREATININE 0.7 mg/dL (0.4-1.0); GFR - MDRD 83 (>89); GLUCOSE 99 mg/dL (70-100); HDL CHOLESTEROL 56 mg/dL; LDL CHOLESTEROL,CALCULATED 76 mg/dL; LDL/HDL RATIO 1.4 (<4.4); SODIUM 142 mmol/L (135-145); TOTAL PROTEIN 6.9 g/dL (6.7-8.2); TRIGLYCERIDES 100 mg/dL; VLDL CHOLESTEROL 20 mg/dL
== END 2023-02-23 08:50 | disposition home or self-care (01) ==
LOC: LAB 08:49
PROVIDERS: ATTEND Internal Medicine Cardiovascular Disease
DX: I10 Essential (primary) hypertension (principal); I47.1 Supraventricular tachycardia; R94.31 Abnormal electrocardiogram [ECG] [EKG]
CPT/HCPCS: 36415; 80053; 80061; 83721

== ENCOUNTER 2023-03-21 12:30 | Outpatient (CLI) | payer MEDICARE ==
--- NOTE | 2023-03-22 09:13 | Mammography Report ---
BILATERAL DIGITAL SCREENING MAMMOGRAM 3D/2D: 03/21/2023 CLINICAL: Routine screening. Comparison is made to exams dated: 12/31/2020 mammogram, 09/05/2018 mammogram, 09/15/2014 mammogram, mammogram, and 06/11/2012 mammogram - [facility]. There are scattered areas of fibroglandular density in both breasts (category b / 25%-50% glandular t issue). There is a possible developing oval equal density asymmetry in the left breast posterior depth latera l region seen on the craniocaudal view only. No other significant masses, calcifications, or other findings are seen in either breast. IMPRESSION: INCOMPLETE: NEEDS ADDITIONAL IMAGING EVALUATION The possible developing oval equal density asymmetry in the left breast is indeterminate. Additional views with possible ultrasound are recommended. Based on the Tyrer Cuzick model (a risk assessment model) the patients lifetime risk is 7.6% and her 10 year risk is 4.2%. According to the ACR, ACS, and NCCN guidelines, an annual breast MRI exam jameel g with mammogram is recommended if the patients lifetime risk is 20% or greater. This exam was interpreted at Station ID: [id number]. NOTE: For mammograms, a report in lay terms will be sent to the patient. Approximately 15% of breast malignancies will not be visualized mammographically. In the management of a palpable breast mass, a negative mammogram must not discourage biopsy of a clinically suspicious lesion. Electronically Signed By: Manuel Johnson M.D. aty/:03/21/2023 15:01:08 ACR BI-RADS Category 0: Incomplete 3340F PARENCHYMAL PATTERN: (A) - The breast(s) demonstrate(s) scattered fibroglandular densities. BI-RADS CATEGORY: (0) - 0 Mammo and [place] [id number] Immediate follow-up LATERALITY: (L)
== END 2023-03-21 12:31 | disposition home or self-care (01) ==
LOC: DI 12:30
DX: Z12.31 Encounter for screening mammogram for malignant neoplasm of breast (principal); R92.8 Other abnormal and inconclusive findings on diagnostic imaging of breast

== ENCOUNTER 2023-04-04 10:48 | Outpatient (CLI) | payer MEDICARE ==
--- NOTE | 2023-04-05 10:14 | Mammography Report ---
UNILATERAL LEFT DIGITAL DIAGNOSTIC MAMMOGRAM 3D/2D: 04/04/2023 CLINICAL: Patient returns today to evaluate an asymmetry in the left breast. Comparison is made to exams dated: 03/21/2023 mammogram, 12/31/2020 mammogram, 09/05/2018 mammogram, a nd 12/28/2016 mammogram - [facility]. There are scattered areas of fibroglandular density in the left breast (category b / 25%-50% glandula r tissue). There is a possible asymmetry in the left breast posterior depth lateral region seen on the craniocau nneka view only. This is less prominent. No other significant masses or calcifications are seen in the breast. IMPRESSION: INCOMPLETE: NEEDS ADDITIONAL IMAGING EVALUATION The possible asymmetry in the left breast resembles fibroglandular tissue and is indeterminate. A targeted ultrasound is recommended and will immediately follow. Based on the Tyrer Cuzick model (a risk assessment model) the patients lifetime risk is 7.6% and her 10 year risk is 4.2%. According to the ACR, ACS, and NCCN guidelines, an annual breast MRI exam jameel g with mammogram is recommended if the patients lifetime risk is 20% or greater. This exam was interpreted at Station ID: [id number]. NOTE: For mammograms, a report in lay terms will be sent to the patient. Approximately 15% of breast malignancies will not be visualized mammographically. In the management of a palpable breast mass, a negative mammogram must not discourage biopsy of a clinically suspicious lesion. Electronically Signed By: Kelton Snow M.D. slc/:04/04/2023 11:18:41 ACR BI-RADS Category 0: Incomplete 3340F PARENCHYMAL PATTERN: (A) - The breast(s) demonstrate(s) scattered fibroglandular densities. BI-RADS CATEGORY: (0) - 0 Ultrasound [id number] Immediate follow-up LATERALITY: (B)
--- NOTE | 2023-04-05 10:14 | Ultrasound Report ---
LIMITED ULTRASOUND OF LEFT BREAST: 04/04/2023 CLINICAL: Patient returns today to evaluate a focal asymmetry in the left breast. Comparison is made to exams dated: 04/04/2023 mammogram, 03/21/2023 mammogram, and 12/31/2020 mammogram - [facility]. Color flow ultrasound of the left breast 3 o'clock region was performed. Conrad scale images of the re al-time examination were reviewed. No significant abnormalities were seen sonographically in the left breast. IMPRESSION: NEGATIVE There is no sonographic evidence of malignancy. A 1 year screening mammogram is recommended. Exam findings were conveyed to the patient. This exam was interpreted at Station ID: [id number]. Electronically Signed By: Kelton Snow M.D. slc/:04/04/2023 11:39:06 Ultrasound BI-RADS: 1 Negative BI-RADS CATEGORY: (1) - 1 Mammogram [id number] 1 year screening LATERALITY: (B)
== END 2023-04-04 10:49 | disposition home or self-care (01) ==
LOC: DI 10:48
PROVIDERS: ATTEND Physician Assistant Medical
DX: R92.8 Other abnormal and inconclusive findings on diagnostic imaging of breast (principal)

== ENCOUNTER 2023-06-05 08:48 | Outpatient (CLI) | payer MEDICARE ==
--- NOTE | 2023-06-05 15:48 | DEXA Report ---
PROCEDURE: Dexa Spine and/or Hip INDICATIONS: POST MENOPAUSAL TECHNIQUE: Dual energy x-ray absorptiometry (DXA) was performed on a [employer]. Regions measur ed are the AP Spine, femoral neck, and if needed forearm. COMPARISON: 03/23/2021 FINDINGS: Lumbar Spine: Bone Mineral Density 1.080 g/cm/cm,T score -0.8. There has been no statistically significant change in bone mineral density since the prior study. Left Femoral Neck: Bone Mineral Density 0.757 g/cm/cm, T score -2.0. Previous T score -1.9. Left Hip: Bone Mineral Density 0.772 g/cm/cm,T score -1.9. Since the most recent prior study, there has been a statistically significant decrease in bone mineral density by 8.2 percent. (T score greater or equal to -1.0: NORMAL) (T score from -1.1 to -2.4: OSTEOPENIA) (T score less than or equal to -2.5 to: OSTEOPOROSIS) Impression: By WHO criteria, this patient has low bone density (osteopenia). No statistical interval change in bone mineral density of the lumbar spine. Interval statistical decr ease in bone mineral density of the hip. Patients with diagnosis of osteoporosis or osteopenia should have regular bone mineral density assess ment. For those eligible for Medicare, routine testing is allowed once every 2 years. Testing frequ ency can be increased for patients who have rapidly progressing disease or for those who are receivin g medical therapy to restore bone mass. Reviewed by: Cody Lorenzana MD on 06/05/2023 3:35 PM PDT Approved by: Cody Lorenzana MD on 06/05/2023 3:35 PM PDT Station ID: [id number]
== END 2023-06-05 08:49 | disposition home or self-care (01) ==
LOC: DI 08:48
PROVIDERS: ATTEND Physician Assistant Medical
DX: Z78.0 Asymptomatic menopausal state (principal); M85.80 Other specified disorders of bone density and structure, unspecified site

== ENCOUNTER 2024-05-23 08:08 | Outpatient (CLI) | payer MEDICARE ==
[2024-05-23 08:37] LABS: ALBUMIN 4.1 g/dL (3.2-5.5); ALBUMIN/GLOBULIN RATIO 1.5 (1.0-2.2); ALKALINE PHOSPHATASE 68 IU/L (42-121); ALT ALANINE AMINOTRANSFERASE 22 IU/L (10-60); AST ASPARTATE AMINOTRANSFERASE 21 IU/L (10-42); BILIRUBIN,TOTAL 1.1 mg/dL (0.2-1.0); BUN - BLOOD UREA NITROGEN 15 mg/dL (6-20); CALCIUM 9.2 mg/dL (8.5-10.3); CARBON DIOXIDE - CO2 29 mmol/L (21-32); CHLORIDE 108 mmol/L (101-111); CHOL/HDL RATIO 2.9 (<4.4); CHOLESTEROL 178 mg/dL; CREATININE 0.7 mg/dL (0.6-1.3); GFR - MDRD 83 (>89); GLUCOSE 102 mg/dL (74-104); HDL CHOLESTEROL 61 mg/dL; LDL CHOLESTEROL,CALCULATED 86 mg/dL; LDL/HDL RATIO 1.4 (<4.4); POTASSIUM 3.9 mmol/L (3.5-4.5); SODIUM 141 mmol/L (135-145); TOTAL PROTEIN 6.8 g/dL (6.4-8.9); TRIGLYCERIDES 153 mg/dL; VLDL CHOLESTEROL 31 mg/dL
== END 2024-05-23 08:09 | disposition home or self-care (01) ==
LOC: LAB 08:08
PROVIDERS: ATTEND Internal Medicine Cardiovascular Disease
DX: E78.5 Hyperlipidemia, unspecified (principal)
CPT/HCPCS: 36415; 80053; 80061; 83721